=== PATIENT | male | born 1965 | race Caucasian/White ===

== ENCOUNTER 2020-03-04 06:39 | Outpatient (REF) | payer BC, SELFPAY ==
[2020-03-04 11:06] LABS: MANUAL DIFF FLAG NO
[2020-03-04 11:14] LABS: Basophils Absolute Auto 0.1 X10*3/uL (0.0-0.2); Basophils Percent Auto 1.2 % (0-2); Eosinophils Absolute Auto 0.1 X10*3/uL (0.0-0.4); Eosinophils Percent Auto 2.1 % (0-4); Hematocrit 48.2 % (42-52); Hemoglobin 15.9 g/dl (14.0-18.0); Imm Gran Abs Auto 0.02 X10*3/uL (0.00-0.03); Imm Gran Pct Auto 0.4 % (0.0-0.4); Lymphocytes Absolute Auto 1.3 X10*3/uL (1.2-4.9); Lymphocytes Percent Auto 24.8 % (20-40); Mean Corpuscular Hemoglobin 31.1 pg (27.0-33.0); Mean Corpuscular Volume 94.1 fL (80-98); Mean Platelet Volume 10.6 fL (9.4-12.4); Monocytes Absolute Auto 0.5 X10*3/uL (0.1-1.2); Monocytes Percent Auto 9.5 % (2-11); Neutrophils Absolute Auto 3.2 X10*3/uL (2.0-8.3); Platelet Count 215 X10*3/uL (160-400); Red Blood Count 5.12 X10*6/uL (4.60-5.80); Red Cell Distribution Width 12.5 % (11.0-16.0); White Blood Count 5.2 X10*3/uL (4.8-10.8)
[2020-03-04 11:35] LABS: Alanine Aminotransferase 15 U/L (0-40); Albumin Level 4.4 g/dL (3.5-5.0); Alkaline Phosphatase 70 U/L (39-117); Anion Gap 13 (12-20); Aspartate Amino Transferase 19 U/L (5-37); Blood Urea Nitrogen 16 mg/dL (9-16); Calcium 9.2 mg/dL (8.4-10.2); Carbon Dioxide 28 mmol/L (22-29); Chloride 101 mmol/L (96-108); Cholesterol 189 mg/dL; Estimated Glomerular Filt Rate > 60; Glucose Fasting 88 mg/dL (60-99); HDL Cholesterol 69 mg/dL; LDL Cholesterol Calculated 106 mg/dl; Potassium 4.4 mmol/l (3.3-5.1); Sodium 138 mmol/L (135-145); Total Protein 7.3 g/dL (6.5-8.0); Triglycerides 74 mg/dL
[2020-03-04 12:00] LABS: TSH reflex Free T4 0.61 mIU/mL (0.32-4.0)
== END 2020-03-04 06:40 | disposition home or self-care (01) ==
LOC: HO.HMGCLDS 06:39
PROVIDERS: PCP Internal Medicine; Visit Provider Internal Medicine
DX: E78.9 Disorder of lipoprotein metabolism, unspecified (principal)
CPT/HCPCS: 36415; 80053; 80061; 84443; 85025

== ENCOUNTER 2020-08-27 06:43 | Outpatient (REF) | payer BC, SELFPAY ==
[2020-08-27 12:29] LABS: Anion Gap 13 (12-20); Blood Urea Nitrogen 15 mg/dL (9-16); Calcium 9.5 mg/dL (8.4-10.2); Carbon Dioxide 28 mmol/L (22-29); Chloride 104 mmol/L (96-108); Cholesterol 196 mg/dL; Estimated Glomerular Filt Rate > 60; Glucose Fasting 93 mg/dL (60-99); HDL Cholesterol 73 mg/dL; LDL Cholesterol Calculated 103 mg/dl; Potassium 4.9 mmol/L (3.3-5.1); Sodium 140 mmol/L (135-145); Triglycerides 100 mg/dL
[2020-08-27 12:30] LABS: TSH reflex Free T4 0.76 uIU/mL (0.32-4.0)
== END 2020-08-27 06:44 | disposition home or self-care (01) ==
LOC: HO.HMGCLDS 06:43
PROVIDERS: PCP Internal Medicine; Visit Provider Internal Medicine
DX: Z00.01 Encounter for general adult medical examination with abnormal findings (principal); E03.8 Other specified hypothyroidism; I48.0 Paroxysmal atrial fibrillation
CPT/HCPCS: 36415; 80048; 80061; 84443

== ENCOUNTER → 2020-12-12 12:54 | Outpatient (BNVA) | payer BC, SELFPAY | PROVIDERS: PCP Internal Medicine; Referring Provider Internal Medicine; Visit Provider Internal Medicine Cardiovascular Disease | DX: I48.19 Other persistent atrial fibrillation (principal) | CPT/HCPCS: 93005 ==

== ENCOUNTER → 2021-01-08 11:59 | Day surgery (SDC) | payer BC, SELFPAY ==
[2021-01-01 12:30] VITALS: BMI 26.6
[2021-01-02 09:36] VITALS: BMI 26.6
--- NOTE | 2021-01-07 15:30 | HO.ANESPROP2 ---
HPI - Anesthesia Eval Consult details Narrative: 55yo M for Cardioversion Xarelto for afib PMFSH Active Problems Active Problems: All Active Problems (Updated 01/02/21 @ 09:32 by Miranda Caes RN) Persistent atrial fibrillation (Acute) Lipid disorder (Acute) Other specified hypothyroidism (Acute) Past Medical History Medical History (Updated 01/02/21 @ 09:32 by Miranda Case RN) History of thyroid storm Lipid disorder Other specified hypothyroidism Paroxysmal atrial fibrillation Family History Family History Father Cancer of prostate Colon polyps Mother No problems noted. Maternal Grandfather Leukemia Maternal Grandmother No problems noted. Paternal Grandmother No problems noted. Paternal Grandfather No problems noted. Brother No problems noted. Brother No problems noted. Brother No problems noted. Sister No problems noted. Surgical History Surgical History (Updated 01/02/21 @ 09:32 by Miranda Case RN) History of wisdom tooth extraction Hx of colonoscopy Social History Social History (Updated 01/02/21 @ 09:31 by Miranda Case RN) Housing: House Alcohol intake: never Patient Tobacco Use Status: Never used Tobacco Second Hand Smoke Exposure: No Current occupational status: employed Meds Allergies Allergy/AdvReac Type Severity Reaction Status Date / Time No Known Allergies Allergy Mild NOT Verified 01/02/21 09:30 APPLICABLE Home Medications Medication Instructions Recorded Confirmed Last Taken Type latanoprost 0.005 % eye drops drp OPHTHALMIC (EYE) 03/13/20 12/12/20 Unknown History metoprolol succinate 25 mg 25 mg PO BEDTIME 01/02/21 01/02/21 Unknown History tablet,extended release 24 hr (Toprol XL) rivaroxaban 20 mg tablet (Xarelto) 20 mg PO BEDTIME 01/02/21 01/02/21 Unknown History Exam Exam Date and Time: January 07, 2021 1530 Height,Weight and Vital Signs: Height 5 ft 9 in Weight 81.647 kg Narrative Narrative: EKG 11/2020 atrial fibrillation rightward axis with nonspecific ST T wave changes Assessment and Plan Assessment Anesthesia Assessment: Chart Reviewed
--- NOTE | 2021-01-08 12:42 | ECG_ITS ---
Test Reason : SINUS JYOTI Blood Pressure : / mmHG Vent. Rate : 052 BPM Atrial Rate : 052 BPM P-R Int : 192 ms QRS Dur : 098 ms QT Int : 450 ms P-R-T Axes : 043 043 033 degrees QTc Int : 418 ms Sinus bradycardia with Premature atrial complexes Abnormal ECG When compared with ECG of 30-JUN-2008 09:20, Sinus rhythm has replaced Atrial fibrillation Vent. rate has decreased BY 46 BPM Nonspecific T wave abnormality no longer evident in Lateral leads Referred By: William Woody Electronically Signed By:HUMA DUGAN MD
--- NOTE | 2021-01-08 12:43 | PC.NURSE ---
while assessing patient radial pulse felt normal sinus rhythm. put patient on monitor and is in sinus bradycardia. ekg called. asymptomatic. no cp, sob, dizziness
[2021-01-08 12:47] VITALS: BP 142/88; PULSE 51; RESP 16; TEMP 36.7; O2SAT 95
--- NOTE | 2021-01-08 12:56 | PC.NURSE ---
patient cancelled per md copeland to be seen as an outpatient.
== END ==
PROVIDERS: PCP Internal Medicine; Visit Provider Internal Medicine Cardiovascular Disease
DX: I48.91 Unspecified atrial fibrillation (principal); Z53.09 Procedure and treatment not carried out because of other contraindication
CPT/HCPCS: 93005

== ENCOUNTER → 2021-01-20 06:54 | Outpatient (REF) | payer BC, SELFPAY ==
--- NOTE | 2021-01-20 | HM_ITS ---
Total monitoring time 2 days and 23 hours. Underlying rhythm is sinus. Minimum heart rate 40/Min. Maximum 90/Min. Average 60/Min. No atrial fibrillation or flutter. Occasional supraventricular ectopy with a burden of 0.75%. 7 supraventricular episodes with the longest run of 21 beats. Very rare ventricular ectopy with a burden of 0.2%; 2 morphologies; 1 couplet. No patient events. MTDD
--- NOTE | 2021-01-20 07:00 | CA_ITS ---
Transthoracic Echocardiogram Patient (Last, First, Middle): Evan Morris D Gender: Male Date of : 1965 Age: 55 Procedure Date: 01/20/2021 Procedure Type: Transthoracic Echocardiogram Location: OP Height: 175.26 cm Weight: 83.92 kg BSA: 2.00 m2 Heart Rate: bpm BP: 118 / 80 mmHg Burrito Maker: Referring MD: Eliseo Adame MD Symptoms: AFIB Study Quality: Fair ECG Rhythm: Sinus Conclusions: - The left ventricular systolic function is low normal. The calculated ejection fraction is 51% by biplane method. - Suggestion of basal inferior hypokinesis in some views. - No obvious valvular pathology seen on this study. Findings Left Ventricle Normal left ventricular cavity size. There is mildly increased left ventricular wall thickness. The left ventricular systolic function is low normal. The calculated ejection fraction is 51% by biplane method. There is borderline global hypokinesis. E/E prime ratio is <8, consistent with normal filling pressures. Evidence suggests grade I (mild) diastolic dysfunction. Suggestion of basal inferior hypokinesis in some views. Right Ventricle Normal right ventricular cavity size and systolic function. Atria Both atria are normal in size. Aortic Valve There is a normal trileaflet aortic valve. There is no aortic valve stenosis. There is no aortic valve regurgitation. Mitral Valve The mitral valve appears normal. There is trace mitral valve regurgitation. There is no mitral valve stenosis. Pulmonic Valve The pulmonic valve was not well visualized. Tricuspid Valve Normal tricuspid valve structure. There is trace tricuspid valve regurgitation. The pulmonary artery systolic pressure is normal. Great Vessels Top normal ascending aortic size at 3.5 cm. Venous The inferior vena cava is normal in size and collapses greater than 50% with inspiration. Pericardium/Pleural There is no evidence of pericardial effusion. Prior Study Comparison Changes noted compared to prior study dated: 06/27/2019. Recommendations, Care & Conclusions No obvious valvular pathology seen on this study. Measurements 2D Linear Measurements IVSd: 1.22 0.6-0.9/0.6-1.0 cm LVIDd: 5.83 3.9-5.3/4.2-5.9 cm LVIDd Index: 2.92 2.4-3.2/2.2-3.1 cm/m2 LVIDs: 4.10 2.0-3.6 cm LVPWd: 1.23 0.7-1.1 cm Ao Root: 3.30 2.1-3.5 cm LA Diam: 4.60 2.7-3.8/3.0-4.0 cm LAIDs Index: 2.30 1.5-2.3 cm/m2 LV Mass: 384.29 67-162/88-224 g LV Mass Index: 192.14 43-95/49-115 g/m2 LVOT Diam: 2.40 3.0+(-)1.3 cm 2D Systolic Function EF 4C: 50.50 >55% EF 2C: 55.30 >55% EF BiP: 51.20 >55% Mitral Valve MV Pk E: 0.50 MV PK A: 0.33 MV Decel Time: 195.00 E/A: 1.50 E'Lateral: 7.72 E'Medial: 4.03 E/E' Med: 12.30 E/E' Lat: 6.40 PHT: 57.00 MVA PHT: 3.86 Decel Branch: 2.54 Aortic Valve AoV Pk Kristopher: 0.82 AoV Mn Kristopher: 0.52 AoV VTI: 0.17 AoV Pk Grad: 3.00 Aov Mn Grad: 1.00 SONNY Cont.VTI: 4.05 LVOT LVOT Pk Kristopher: 0.72 LVOT Mn Kristopher: 0.45 LVOT VTI: 0.15 LVOT Pk Grad: 2.00 LVOT Mn Grad: 1.00 LVOT Diam: 2.40 LVOT Area: 4.52 Diastolic Function MV Pk E: 0.50 MV Pk A: 0.33 E/A: 1.50 E'Medial: 4.03 E/E' Med: 12.30 E' Laterial: 7.72 E/E' Lat: 6.40 Right Ventricle TAPSE (mm): 20.00 TVS' Kristopher: 8.00 Tricuspid Valve TR Pk Kristopher: 2.07 TR Pk Grad: 17.00 Great Vessels Aorta Ao Root-2D: 3.30 2.0-3.7 cm Ao Asc: 3.50 2.1-3.4 cm Pulmonary Valve PV Pk Kristopher: 0.67 Peak PV Grad: 2.00 Updated in Other Vendor System with Status of Final Sigifredo Kang MD electronically signed on 01/20/2021 12:02:47 PM with status of Final
== END ==
LOC: HO.CARD 06:54
PROVIDERS: PCP Internal Medicine; Visit Provider Internal Medicine Cardiovascular Disease
DX: I48.19 Other persistent atrial fibrillation (principal)
CPT/HCPCS: 93242; 93306

== ENCOUNTER → 2021-02-03 14:55 | Outpatient (BNVA) | payer BC, SELFPAY | PROVIDERS: PCP Internal Medicine; Referring Provider Internal Medicine; Visit Provider Internal Medicine Cardiovascular Disease | DX: I48.0 Paroxysmal atrial fibrillation (principal); E78.9 Disorder of lipoprotein metabolism, unspecified | CPT/HCPCS: 93005 ==

== ENCOUNTER 2021-03-03 08:18 | Outpatient (REF) | payer BC, SELFPAY ==
[2021-03-03 12:23] LABS: Alanine Aminotransferase 18 U/L (0-40); Albumin Level 4.3 g/dL (3.5-5.0); Alkaline Phosphatase 64 U/L (39-117); Anion Gap 13 (12-20); Aspartate Amino Transferase 20 U/L (5-37); Bilirubin Total 0.5 mg/dL (0.0-1.0); Blood Urea Nitrogen 13 mg/dL (9-16); Calcium 9.2 mg/dL (8.4-10.2); Carbon Dioxide 25 mmol/L (22-29); Chloride 107 mmol/L (96-108); Cholesterol 172 mg/dL; Estimated Glomerular Filt Rate > 60; Glucose Fasting 93 mg/dL (60-99); HDL Cholesterol 67 mg/dL; LDL Cholesterol Calculated 95 mg/dl; Potassium 4.6 mmol/L (3.3-5.1); Sodium 140 mmol/L (135-145); Total Protein 7.1 g/dL (6.5-8.0); Triglycerides 51 mg/dL
[2021-03-03 12:28] LABS: TSH reflex Free T4 1.17 uIU/mL (0.32-4.0)
== END 2021-03-03 08:19 | disposition home or self-care (01) ==
LOC: HO.HMGCLDS 08:18
PROVIDERS: PCP Internal Medicine; Visit Provider Internal Medicine
DX: E03.8 Other specified hypothyroidism (principal); E78.9 Disorder of lipoprotein metabolism, unspecified
CPT/HCPCS: 36415; 80053; 80061; 84443

== ENCOUNTER → 2021-07-01 07:10 | Outpatient (BNVA) | payer BC, SELFPAY | PROVIDERS: PCP Internal Medicine; Referring Provider Internal Medicine; Visit Provider Nurse Practitioner | DX: Z13.89 Encounter for screening for other disorder (principal) ==

== ENCOUNTER → 2021-08-11 14:34 | Outpatient (BNVA) | payer BC, SELFPAY | PROVIDERS: PCP Internal Medicine; Referring Provider Internal Medicine; Visit Provider Internal Medicine Cardiovascular Disease | DX: I48.0 Paroxysmal atrial fibrillation (principal); E78.9 Disorder of lipoprotein metabolism, unspecified | CPT/HCPCS: 93005 ==

== ENCOUNTER 2021-08-29 06:05 | Outpatient (REF) | payer BC, SELFPAY ==
[2021-08-29 11:52] LABS: Alanine Aminotransferase 15 U/L (0-40); Albumin Level 4.3 g/dL (3.5-5.0); Alkaline Phosphatase 72 U/L (39-117); Anion Gap 11 (12-20); Aspartate Amino Transferase 18 U/L (5-37); Bilirubin Total 1.1 mg/dL (0.0-1.0); Blood Urea Nitrogen 16 mg/dL (9-16); Calcium 9.5 mg/dL (8.4-10.2); Carbon Dioxide 25 mmol/L (22-29); Chloride 105 mmol/L (96-108); Cholesterol 178 mg/dL; Estimated Glomerular Filt Rate > 60; Glucose Fasting 93 mg/dL (60-99); HDL Cholesterol 58 mg/dL; LDL Cholesterol Calculated 104 mg/dl; Sodium 137 mmol/L (135-145); Total Protein 7.3 g/dL (6.5-8.0); Triglycerides 82 mg/dL
[2021-08-29 12:18] LABS: TSH reflex Free T4 0.95 uIU/mL (0.32-4.0)
== END 2021-08-29 06:06 | disposition home or self-care (01) ==
LOC: HO.HMGCLDS 06:05
PROVIDERS: PCP Internal Medicine; Visit Provider Internal Medicine
DX: E78.9 Disorder of lipoprotein metabolism, unspecified (principal); E03.8 Other specified hypothyroidism; I48.0 Paroxysmal atrial fibrillation
CPT/HCPCS: 36415; 80053; 80061; 84443

== ENCOUNTER 2022-03-09 06:01 | Outpatient (REF) | payer BC, SELFPAY ==
[2022-03-09 12:24] LABS: Alanine Aminotransferase 16 U/L (0-40); Albumin Level 4.4 g/dL (3.5-5.0); Alkaline Phosphatase 73 U/L (39-117); Anion Gap 10 (12-20); Aspartate Amino Transferase 16 U/L (5-37); Bilirubin Total 0.7 mg/dL (0.0-1.0); Blood Urea Nitrogen 15 mg/dL (9-16); Calcium 9.3 mg/dL (8.4-10.2); Carbon Dioxide 27 mmol/L (22-29); Chloride 104 mmol/L (96-108); Cholesterol 191 mg/dL; Estimated Glomerular Filt Rate > 60; Glucose Fasting 103 mg/dL (60-99); HDL Cholesterol 61 mg/dL; LDL Cholesterol Calculated 114 mg/dl; Potassium 4.1 mmol/L (3.3-5.1); Prostate Specific Antigen 1.53 ng/mL (<0.05-4.0); Sodium 137 mmol/L (135-145); TSH reflex Free T4 1.14 uIU/mL (0.32-4.0); Total Protein 7.1 g/dL (6.5-8.0); Triglycerides 81 mg/dL
== END 2022-03-09 06:02 | disposition home or self-care (01) ==
LOC: HO.HMGCLDS 06:01
PROVIDERS: PCP Internal Medicine; Visit Provider Internal Medicine
DX: Z12.5 Encounter for screening for malignant neoplasm of prostate (principal); E03.8 Other specified hypothyroidism; E78.9 Disorder of lipoprotein metabolism, unspecified; I48.0 Paroxysmal atrial fibrillation
CPT/HCPCS: 36415; 80053; 80061; 84153; 84443

== ENCOUNTER 2022-06-05 11:02 | Day surgery (SDC) | payer BC, SELFPAY ==
[2022-06-02 15:33] VITALS: BMI 27.7
--- NOTE | 2022-06-04 13:19 | HO.ANESPROP2 ---
Documented by User: Tasneem Noel NP 06/04/22 13:21 HPI - Anesthesia Eval Consult details Narrative: 57yo M for Colonoscopy PAF - no anticoag, followed yearly by Dr Deep ROSE Active Problems Active Problems: All Active Problems (Updated 03/17/22 @ 08:51 by Mateo Mcginnis MD) Encounter for general adult medical examination with abnormal findings (Acute) Colon cancer screening (Acute) Acquired hypothyroidism (Acute) Screening for prostate cancer (Acute) Impaired fasting blood sugar (Acute) Overweight (BMI 25.0-29.9) (Acute) Paroxysmal atrial fibrillation (Acute) Lipid disorder (Acute) Other specified hypothyroidism (Acute) Past Medical History Medical History (Updated 03/17/22 @ 08:51 by Mateo Mcginnis MD) History of thyroid storm Lipid disorder Other specified hypothyroidism Paroxysmal atrial fibrillation Persistent atrial fibrillation Family History Family History Father Cancer of prostate Colon polyps Mother No problems noted. Maternal Grandfather Leukemia Maternal Grandmother No problems noted. Paternal Grandmother No problems noted. Paternal Grandfather No problems noted. Brother No problems noted. Brother No problems noted. Brother No problems noted. Sister No problems noted. Surgical History Surgical History (Updated 06/02/22 @ 15:31 by Sara Rodriguez RN) History of wisdom tooth extraction Hx of colonoscopy Social History Social History Housing: House Alcohol intake: never Patient Tobacco Use Status: Never used Tobacco e-Cigarette/Vaping Use: Never Used Second Hand Smoke Exposure: No Are you DNR?: No Advance Directives: No Advance Directives Information Provided: Yes Nutrition Risks: No Nutritional Risk Current occupational status: employed Cognitive needs: No Hearing needs: No Vision needs: Yes Meds Allergies Allergy/AdvReac Type Severity Reaction Status Date / Time No Known Allergies Allergy Mild NOT Verified 03/17/22 08:33 APPLICABLE Home Medications Medication Instructions Recorded Confirmed Last Taken Type latanoprost 0.005 % eye drops 1 drp ophthalmic (eye) BEDTIME 03/13/20 06/02/22 Unknown History Exam Exam Date and Time: June 04, 2022 1319 Height,Weight and Vital Signs: Height 5 ft 9 in Weight 85.275 kg Pertinent Lab Results Pertinent Lab Results: Laboratory Tests 03/04/20 03/09/22 06:49 06:07 WBC 5.2 Hgb 15.9 Hct 48.2 Plt Count 215 Sodium 137 Potassium 4.1 Chloride 104 Carbon Dioxide 27 BUN 15 Creatinine 1.12 Narrative Narrative: EKG 07/2021 normal sinus rhythm with poor R-wave progression most likely due to lead placement. ECHO 2020 Conclusions: - The left ventricular systolic function is low normal.? The ? ? calculated ejection fraction is 51% by biplane method. ? - Suggestion of basal inferior hypokinesis in some views.? - No obvious valvular pathology seen on this study.? Assessment and Plan Assessment Anesthesia Assessment: Chart Reviewed Documented by User: Gwendolyn Vasques MD 06/05/22 12:54 [facility] Past Medical History Medical History (Updated 03/17/22 @ 08:51 by Mateo Mcginnis MD) History of thyroid storm Lipid disorder Other specified hypothyroidism Paroxysmal atrial fibrillation Persistent atrial fibrillation Family History Family History Father Cancer of prostate Colon polyps Mother No problems noted. Maternal Grandfather Leukemia Maternal Grandmother No problems noted. Paternal Grandmother No problems noted. Paternal Grandfather No problems noted. Brother No problems noted. Brother No problems noted. Brother No problems noted. Sister No problems noted. Family history of problems with anesthesia: No Surgical History Surgical History (Updated 06/02/22 @ 15:31 by Sara Rodriguez RN) History of wisdom tooth extraction Hx of colonoscopy History of Problems with Anesthesia: No Social History Social History Housing: House Alcohol intake: never Patient Tobacco Use Status: Never used Tobacco e-Cigarette/Vaping Use: Never Used Second Hand Smoke Exposure: No Are you DNR?: No Advance Directives: No Advance Directives Information Provided: Yes Nutrition Risks: No Nutritional Risk Current occupational status: employed Cognitive needs: No Hearing needs: No Vision needs: Yes Meds Allergies Allergy/AdvReac Type Severity Reaction Status Date / Time No Known Allergies Allergy Mild NOT Verified 03/17/22 08:33 APPLICABLE Home Medications Medication Instructions Recorded Confirmed Last Taken Type latanoprost 0.005 % eye drops 1 drp ophthalmic (eye) BEDTIME 03/13/20 06/02/22 Unknown History Exam Airway Mallampati Class: II (Missing a crown in on tooth) TM Dist: >3cm Neck ROM: Full Heart: rrr Lungs: cta Assessment and Plan Assessment Anesthesia Assessment: Anesthesia Plan Discussed Final Anesthetic Review Family History of Problems with Anesthesia: No History of Problems with Anesthesia: No NPO: Yes ASA Class: II Final Preanesthetic Review: No Changes in Pt Med Stat, Meds/Allgs Chart Reviewed and Consent Obtained/Reviewed Patient Risk: Intermediate Procedure Risk: Intermediate Anesthetic Plan Anesthetic Plan: MAC: Disposition: Standard PACU
[2022-06-05] MEDS: Lactated Ringers 1,000 ML 100 ML IVCONT (11:48)
[2022-06-05 12:01] VITALS: BP 132/75; PULSE 62; RESP 18; TEMP 36.4; O2SAT 97
--- NOTE | 2022-06-05 12:17 | MHC.SHP ---
Pre-Procedural Eval Section A Date of Service: 06/05/22 The patient is an INPATIENT: No The History & Physical has been completed within 30 days and I have reviewed it.: No Section B Chief Complaint: screening, hx of hyperplastic polyp Details of Present Illness: Colon cancer screening, history of colon polyps Relevant Family History (Specify if Yes): Yes Relevant Social History: None Present Medications: see Short Stay Collaborative assessment Medical History: Significant History (History of thyroid storm Lipid disorder Other specified hypothyroidism Paroxysmal atrial fibrillation Persistent atrial fibrillation) History of Previous Operations: Relevant previous surgery/procedure and date(s) (History of wisdom tooth extraction Hx of colonoscopy) Allergies: Allergies Allergy/AdvReac Type Severity Reaction Status Date / Time No Known Allergies Allergy Mild NOT Verified 03/17/22 08:33 APPLICABLE Review of Systems Sugical H&P ROS: Negative: Constitution, Cardiovascular, Respiratory and Gastrointestinal Exam Surgical H&P Exam: Normal: Heart, Normal: Lungs, Normal: Extremities and Normal: Abdomen Plan Diagnosis/Plan: Unchanged I have reviewed the history and physical and performed a pertinent physical examination on my patient. No changes have occurred unless specified. Time Spent With Patient Time: Total time managing care of this patient today ____ minutes.
--- NOTE | 2022-06-05 13:11 | PM.OP ---
Brief Operative Note Date of Service: 06/05/22 Pre-op diagnosis: Colon cancer screening, history of hyperplastic polyp Post-op diagnosis: other (COLON POLYPS, DIVERTICULOSIS, HEMORRHOIDS) Procedure: COLONOSCOPY TILL CECUM WITH BIOPSIES Surgeon: Jeremy Jaramillo MD Anesthesia: MAC Was an Juvenile Justice Specialist used for this Procedure?: Yes Juvenile Justice Specialist: Amadna Berg Estimated blood loss (mL): 1 Pathology: other (A. transverse colon polyps (2)) Condition: stable Disposition: PACU
--- NOTE | 2022-06-05 13:11 | W.PM.OPN ---
Operative Note Operative Note Date of Service: 06/05/22 Narrative: COLONOSCOPY TILL CECUM WITH BIOPSIES Indication:? Colon cancer screening Endoscopist:? Jeremy Jaramillo MD Anesthesia Provider:?Dr Monahan Anesthesia type:?MAC Consent: Indications for the procedure and potential complications of bleeding, perforation, reaction to medications and missed diagnosis were discussed with the patient and informed consent was obtained. Instrument: Olympus PCF H 190 L variable stiffness pediatric colonoscope Monitoring: Vital signs and clinical assessment, intermittent blood pressure monitoring, continuous EKG monitoring, Pulse oximetry and Carbon Dioxide monitoring were done throughout the procedure. Please see anesthesia flowsheet. Colon withdrawl time was 12 minutes. Procedure: The patient was placed in the left lateral decubitis position and pre-procedure medications were administered. After a digital rectal examination of the ano-rectum, the video colonoscope was inserted into the rectum and advanced through the colon to the cecum. The colonoscope was slowly withdrawn in a retrograde panoramic fashion and the colon mucosa was carefully examined including a retroflexed view of the rectum. Findings and interventions are described below. Procedure Difficulty: Without difficulty Findings: Terminal Ileum: Not evaluated Cecum: Normal Ascending Colon: Normal Transverse Colon: Two 3-6 mm diminutive appearing polyps removed with a cold biopsy Descending Colon: Moderate diverticulosis Sigmoid Colon: Moderate diverticulosis Rectum: Normal Ano-rectum: Moderate internal hemorrhoids Colon preparation: Excellent Impression and Post Procedure Diagnosis: Colonoscopy Findings: Two small polyps removed Moderate diverticulosis seen in the left colon Moderate hemorrhoids on retroflexed exam. Plan: Await pathology results Patient has an appointment on 06/19/22 in the [facility] with Tessa Porter NP. Repeat Colonoscopy interval based on path results - in 5 years if polyps are adenomatous and 10 years if polyps are hyperplastic. Above findings were reviewed with the patient and colon polyps and diverticulosis handouts were given in the discharge area
[2022-06-05 13:42] VITALS: BP 106/58; PULSE 56; RESP 20; TEMP 36.8; O2SAT 99
[2022-06-05 13:57] VITALS: BP 121/79; PULSE 60; RESP 20; TEMP 36.8; O2SAT 98
== END 2022-06-05 14:28 | disposition home or self-care (01) ==
PROVIDERS: PCP Internal Medicine; Visit Provider Internal Medicine Gastroenterology
PROC: 0DJD8ZZ Inspection of Lower Intestinal Tract, Via Natural or Artificial Opening Endoscopic (ICD-10-PCS; CPT 45378; principal; 2022-06-05 12:30)
DX: Z12.11 Encounter for screening for malignant neoplasm of colon (principal); Z86.010 Personal history of colon polyps; K63.5 Polyp of colon; K57.30 Diverticulosis of large intestine without perforation or abscess without bleeding; K64.8 Other hemorrhoids; E75.6 Lipid storage disorder, unspecified; I48.0 Paroxysmal atrial fibrillation; I48.19 Other persistent atrial fibrillation; E03.9 Hypothyroidism, unspecified; Z86.39 Personal history of other endocrine, nutritional and metabolic disease; Z79.899 Other long term (current) drug therapy
CPT/HCPCS: 45380; 88305

== ENCOUNTER → 2022-06-17 15:39 | Outpatient (REF) | payer BC, SELFPAY ==
--- NOTE | 2022-06-17 15:43 | CA_ITS ---
Transthoracic Echocardiogram Amended Patient (Last, First, Middle): Evan Morris D Gender: Male Date of : 1965 Age: 57 Procedure Date: 06/17/2022 Procedure Type: Transthoracic Echocardiogram Location: OP Height: 175.26 cm Weight: 86.18 kg BSA: 2.02 m2 Heart Rate: bpm BP: 125 / 60 mmHg Textile Colorist Dyer: Referring MD: Eliseo Adame MD Information Technology Program Manager: Eliseo Adame MD Symptoms: I48.0 - Paroxysmal atrial fibrillation Study Quality: Good ECG Rhythm: Sinus Conclusions: - 1. Low normal LV systolic function with LVEF of 50-55% 2. Normal cardiac valvular Doppler 3. Normal RV systolic pressure Findings Left Ventricle Normal left ventricular cavity size. There is normal left ventricular wall thickness. The left ventricular systolic function is low normal. The visually estimated ejection fraction is between 50-55%. Diastolic function is normal for age. Right Ventricle Mildly increased right ventricular cavity size. There is normal right ventricular systolic function. Atria The left atrium is mildly dilated. There is no evidence of interatrial shunt. The right atrium is normal in size. Aortic Valve Normal aortic valve structure and function. There is no aortic valve stenosis. There is no aortic valve regurgitation. Mitral Valve Normal mitral valve structure and function. There is trace mitral valve regurgitation. There is no mitral valve stenosis. Pulmonic Valve The pulmonic valve was not well visualized. Tricuspid Valve Likely normal tricuspid valve structure and function. There is trace tricuspid valve regurgitation. The right ventricular systolic pressure is normal. The right ventricular systolic pressure is 20 mmHg. Normal right atrial pressure. There is no evidence of pulmonary hypertension. Great Vessels All visible segments of the aorta are normal in size. The pulmonary artery was not well visualized. Venous The inferior vena cava is normal in size and collapses greater than 50% with inspiration. Pericardium/Pleural There is no evidence of pericardial effusion. Prior Study Comparison No significant change compared to prior study dated: 01/20/2021. Measurements 2D Linear Measurements IVSd: 1.12 0.6-0.9/0.6-1.0 cm LVIDd: 5.79 3.9-5.3/4.2-5.9 cm LVIDd Index: 2.87 2.4-3.2/2.2-3.1 cm/m2 LVIDs: 3.92 2.0-3.6 cm LVPWd: 1.01 0.7-1.1 cm Ao Root: 3.20 2.1-3.5 cm LA Diam: 4.40 2.7-3.8/3.0-4.0 cm LAIDs Index: 2.18 1.5-2.3 cm/m2 LV Mass: 314.80 67-162/88-224 g LV Mass Index: 155.84 43-95/49-115 g/m2 LVOT Diam: 2.50 3.0+(-)1.3 cm 2D Volumes LA Vol: 39.30 2D Systolic Function EF 4C: 54.90 >55% EF 2C: 52.30 >55% Mitral Valve MV Pk E: 0.51 MV PK A: 0.37 MV Decel Time: 243.00 E/A: 1.40 E'Lateral: 7.83 E'Medial: 3.70 E/E' Med: 13.90 E/E' Lat: 6.60 PHT: 71.00 MVA PHT: 3.10 Decel [place]: 2.11 Aortic Valve AoV Pk Kristopher: 1.13 AoV Mn Kristopher: 0.70 AoV VTI: 0.25 AoV Pk Grad: 5.00 Aov Mn Grad: 2.00 SONNY Cont.VTI: 2.53 LVOT LVOT Pk Kristopher: 0.59 LVOT Mn Kristopher: 0.33 LVOT VTI: 0.13 LVOT Pk Grad: 1.00 LVOT Mn Grad: 1.00 LVOT Diam: 2.50 LVOT Area: 4.91 Diastolic Function MV Pk E: 0.51 MV Pk A: 0.37 E/A: 1.40 E'Medial: 3.70 E/E' Med: 13.90 E' Laterial: 7.83 E/E' Lat: 6.60 Right Ventricle TAPSE (mm): 18.00 TVS' Kristopher: 10.00 Tricuspid Valve TR Pk Kristopher: 2.07 TR Pk Grad: 17.00 RA Press: 3.00 RVSP: 20.00 Great Vessels Aorta Ao Root-2D: 3.20 2.0-3.7 cm Ao Asc: 3.40 2.1-3.4 cm Pulmonary Valve PV Pk Kristopher: 0.73 Peak PV Grad: 2.00 Updated in Other Vendor System with Status of Final Eliseo Deep MD electronically signed on 07/07/2022 4:19:53 PM with status of Final
== END ==
LOC: HO.CARD 15:39
PROVIDERS: PCP Internal Medicine; Visit Provider Internal Medicine Cardiovascular Disease
DX: I48.0 Paroxysmal atrial fibrillation (principal)
CPT/HCPCS: 93306

== ENCOUNTER → 2022-06-19 07:39 | Outpatient (BNVA) | payer BC, SELFPAY | PROVIDERS: PCP Internal Medicine; Referring Provider Internal Medicine; Visit Provider Nurse Practitioner | DX: Z13.89 Encounter for screening for other disorder (principal) ==

== ENCOUNTER → 2022-08-17 13:37 | Outpatient (BNVA) | payer BC, SELFPAY | PROVIDERS: PCP Internal Medicine; Referring Provider Internal Medicine; Visit Provider Internal Medicine Cardiovascular Disease | DX: I48.0 Paroxysmal atrial fibrillation (principal); E78.9 Disorder of lipoprotein metabolism, unspecified | CPT/HCPCS: 93005 ==

== ENCOUNTER 2022-09-05 06:32 | Outpatient (REF) | payer BC, SELFPAY ==
[2022-09-05 11:15] LABS: MANUAL DIFF FLAG NO
[2022-09-05 11:16] LABS: Basophils Absolute Auto 0.1 X10*3/uL (0.0-0.2); Basophils Percent Auto 1.3 % (0-2); Eosinophils Absolute Auto 0.1 X10*3/uL (0.0-0.4); Eosinophils Percent Auto 2.4 % (0-4); Hematocrit 47.8 % (42.0-52.0); Hemoglobin 15.9 g/dl (14.0-18.0); Lymphocytes Absolute Auto 1.4 X10*3/uL (1.2-4.9); Lymphocytes Percent Auto 31.1 % (20-40); Mean Corpuscular HGB Conc 33.3 g/dl (31.0-36.0); Mean Corpuscular Hemoglobin 30.6 pg (27.0-33.0); Mean Corpuscular Volume 92.1 fL (80.0-98.0); Mean Platelet Volume 10.7 fL (9.4-12.4); Monocytes Absolute Auto 0.5 X10*3/uL (0.1-1.2); Monocytes Percent Auto 10.6 % (2-11); Neutrophils Absolute Auto 2.5 x10*3/uL (2.0-8.3); Neutrophils Percent Auto 54.6 % (45-73); Platelet Count 187 X10*3/uL (160-400); Red Blood Count 5.19 X10*6/uL (4.60-5.80); Red Cell Distribution Width 12.5 % (11.0-16.0); White Blood Count 4.5 X10*3/uL (4.8-10.8)
[2022-09-05 11:45] LABS: Alanine Aminotransferase 17 U/L (0-40); Albumin Level 4.4 g/dL (3.5-5.0); Alkaline Phosphatase 68 U/L (39-117); Anion Gap 11 (12-20); Aspartate Amino Transferase 24 U/L (5-37); Bilirubin Total 1.5 mg/dL (0.0-1.0); Blood Urea Nitrogen 19 mg/dL (9-16); Calcium 9.3 mg/dL (8.4-10.2); Carbon Dioxide 24 mmol/L (22-29); Chloride 107 mmol/L (96-108); Cholesterol 171 mg/dL; Estimated Glomerular Filt Rate > 60; Glucose Fasting 92 mg/dL (60-99); HDL Cholesterol 62 mg/dL; LDL Cholesterol Calculated 97 mg/dl; Potassium 4.3 mmol/L (3.3-5.1); Sodium 138 mmol/L (135-145); Total Protein 7.1 g/dL (6.5-8.0); Triglycerides 62 mg/dL
[2022-09-05 11:51] LABS: TSH reflex Free T4 0.98 uIU/mL (0.32-4.0)
== END 2022-09-05 06:33 | disposition home or self-care (01) ==
LOC: HO.HMGCLDS 06:32
PROVIDERS: PCP Internal Medicine; Visit Provider Internal Medicine
DX: E03.8 Other specified hypothyroidism (principal); E78.9 Disorder of lipoprotein metabolism, unspecified
CPT/HCPCS: 36415; 80053; 80061; 84443; 85025

== ENCOUNTER 2023-03-06 06:39 | Outpatient (REF) | payer BC, SELFPAY ==
[2023-03-06 11:28] LABS: Alanine Aminotransferase 22 U/L (0-40); Albumin Level 4.6 g/dL (3.5-5.0); Alkaline Phosphatase 92 U/L (39-117); Anion Gap 14 (12-20); Aspartate Amino Transferase 23 U/L (5-37); Bilirubin Total 1.1 mg/dL (0.0-1.0); Blood Urea Nitrogen 14 mg/dL (9-16); Calcium 9.5 mg/dL (8.4-10.2); Carbon Dioxide 23 mmol/L (22-29); Chloride 103 mmol/L (96-108); Cholesterol 192 mg/dL (<200); Estimated Glomerular Filt Rate > 60; Glucose Fasting 95 mg/dL (60-99); HDL Cholesterol 65 mg/dL (>40); LDL Cholesterol Calculated 112 mg/dL (<100); Potassium 3.9 mmol/L (3.3-5.1); Sodium 136 mmol/L (135-145); Total Protein 7.9 g/dL (6.5-8.0); Triglycerides 77 mg/dL (<150)
[2023-03-06 11:36] LABS: TSH reflex Free T4 1.21 uIU/mL (0.32-4.0)
[2023-03-09 06:34] LABS: LDL Cholesterol Direct 111 mg/dL (<100)
== END 2023-03-06 06:40 | disposition home or self-care (01) ==
LOC: HO.HMGCLDS 06:39
PROVIDERS: PCP Internal Medicine; Visit Provider Internal Medicine
DX: Z00.01 Encounter for general adult medical examination with abnormal findings (principal); E03.9 Hypothyroidism, unspecified; R73.01 Impaired fasting glucose; E78.9 Disorder of lipoprotein metabolism, unspecified; I48.0 Paroxysmal atrial fibrillation
CPT/HCPCS: 36415; 80053; 80061; 83721; 84443

== ENCOUNTER 2023-03-17 15:26 | Outpatient (AMB) | payer BC, SELFPAY ==
[2023-03-17 15:35] VITALS: BP 140/82; PULSE 71; O2SAT 99; BMI 27.5
--- NOTE | 2023-03-17 15:35 | A.OFFPC_ITS ---
Vital Signs 03/17/23 15:35 Height 5 ft 9 in Weight 186 lb 6 oz BMI 27.5 BP 140/82 H Blood Pressure Location Rt brachial Position Sitting Pulse 71 Pulse Source Pulse Oximeter Pulse Oximetry (%) 99 Oxygen Delivery Method Room Air Intake Visit Reasons: 6 month follow up Allergies No Known Allergies Allergy (Mild, Verified 03/17/23 15:37) NOT APPLICABLE Medication List - Last Reconciled 03/17/23 by Mateo Mcginnis MD atorvastatin 80 mg PO DAILY latanoprost 0.005% 1 drp ophthalmic (eye) BEDTIME Synthroid (levothyroxine) 112 mcg PO DAILY 90 days NS Tobacco use date assessed: 03/17/23 Dental Screening Dental Screen Date: 03/17/23 Did you have a dental visit in the last 12 months?: Yes Did you have a dental problem in the last 6 months where you did not have access to dental care?: No Was dental information given to patient?: Patient has dentist HPI 6 month follow up HPI Details Patient is a 57-year-old male came in today for his regular 6 month follow-up appointment Paroxysmally atrial fibrillation, managed by Dr. Adame cardiology, Patient is in AFib today, I have told him to start taking aspirin at least that he has not been taking Hypothyroidism: Patient is on Synthroid 112 mcg his TSH is within normal range. Lipid disorder: Continue simvastatin 80 mg lipids are controlled. Labs done recently reviewed with the patient. His LDL has worsened a little bit from 97-112 Impaired fasting sugar , diet-controlled Medication refills sent follow-up 6 months [facility] Medical History History of thyroid storm Persistent atrial fibrillation Lipid disorder Paroxysmal atrial fibrillation Other specified hypothyroidism Surgical History Hx of colonoscopy History of wisdom tooth extraction Family History Father Cancer of prostate Colon polyps Mother No problems noted. Maternal Grandfather Leukemia Maternal Grandmother No problems noted. Paternal Grandmother No problems noted. Paternal Grandfather No problems noted. Brother No problems noted. Brother No problems noted. Brother No problems noted. Sister No problems noted. Social History Housing: House Alcohol intake: never Patient Tobacco Use Status: Never used Tobacco e-Cigarette/Vaping Use: Never Used Second Hand Smoke Exposure: No Current occupational status: employed Cognitive needs: No Hearing needs: No Vision needs: Yes Questionnaire PHQ-9 Over the last 2 weeks, how often have you been bothered by any of the following problems? 1. Little interest or pleasure in doing things: not at all 2. Feeling down, depressed, or hopeless: not at all 3. Trouble falling or staying asleep, or sleeping too much: not at all 4. Feeling tired or having little energy: not at all 5. Poor appetite or overeating: not at all 6. Feeling bad about yourself - or that you are a failure or have let yourself or your family down: not at all 7. Trouble concentrating on things, such as reading the newspaper or watching television: not at all 8. Moving or speaking so slowly that other people could have noticed. Or the opposite - being so fidgety or restless that you have been moving around a lot more than usual: not at all 9. Thoughts that you would be better off or of hurting yourself in some way: not at all Total score: 0 Depression Screening Interpretation: Negative Depression Screening Done: Yes 11913 - PHQ-9 Billing: Yes Source: Developed by Drs. Desmond Meraz, Hyun Morales, Kit Hyde and colleagues, with an educational beatrice from [employer]. Thrive Questionnaire Date Thrive assessed: 03/17/23 I am a: Patient What is your living situation today?: I have a steady place to live Within the past 12 months, did the food you bought not last and you didn't have the money to get more?: Never true Within the past 12 months, did you worry whether your food would run out before you got money to buy more?: Never true Do you have trouble paying for medicines?: No Do you have trouble getting transportation to medical appointments?: No Do you have trouble paying your heating and electricity bill?: No Do you have trouble taking care of your child, family member or friend?: No Do you have trouble with day-to-day activities such as bathing, preparing meals, shopping, managing finances, etc.?: No Are you currently unemployed and looking for a job?: No Are you interested in more education?: No Please select the resources that you would like help with: None Currently or been in a relationship where the following occur: no concerns reported DOMONIQUE-7 AMB Questionnaire DOMONIQUE-7 Date DOMONIQUE - 7 assessed: 03/17/23 Feeling nervous, anxious, or on edge: 0 = Not at all Not being able to stop or control worryin = Not at all Worrying too much about different things: 0 = Not at all Trouble relaxin = Not at all Being so restless that it is hard to sit still: 0 = Not at all Becoming easily annoyed or irritable: 0 = Not at all Feeling afraid as if something awful might happen: 0 = Not at all Total DOMONIQUE-7 score (0-4 normal; 5-9 mild; 10-14 moderate; 15-21 severe): 0 Source: Developed by Drs. Desmond Meraz, Hyun Morales, Kit Hyde and colleagues, with an educational beatrice from [employer]. DOMONIQUE-7 Assessment Billing DOMONIQUE-7 Assessment Tool: DOMONIQUE-7 Assessment 26205 Review of Systems Const Denies chills and Denies fever(s) ENT Denies epistaxis and Denies nasal discharge Card Denies chest pain Resp Denies chest congestion, Denies cough and Denies hemoptysis GI Denies diarrhea and Denies nausea Skin/Breast Denies rash Neuro Reports no additional complaints Psych Reports no additional complaints Endo Reports no additional complaints Physical exam (Primary Care) Vital Signs: Last Vital Signs Pulse 71 03/17/23 15:35 BP 140/82 H 03/17/23 15:35 Pulse Ox 99 03/17/23 15:35 Oxygen Delivery Method Room Air 03/17/23 15:35 BMI result Body Mass Index 27.5 Tobacco/Smoking Status: Tobacco use Status Tobacco use date assessed 03/17/23 03/17/23 15:38 Patient Tobacco Use Status Never used Tobacco 03/17/23 15:38 e-Cigarette/Vaping Use Never Used 03/17/23 15:38 PHQ-9: PHQ-9 Score PHQ-9: Total score 0 03/17/23 15:39 Depression Screening Interpretation: Negative Thrive Assessment: Date of Thrive Assessment Date Thrive assessed 03/17/23 03/17/23 15:39 Currently or been in a relationship where the following occur: no concerns reported Const General: cooperative, comfortable and no acute distress Orientation/consciousness: patient oriented x3 HENSC Head: Yes normocephalic Eyes General: appearance normal, both eyes and all related structures Neck Neck: Yes supple Resp Effort & Inspection: normal respiratory effort, no cough and no stridor Cardio Other: Irregularly irregular Heart sounds: S1 normal heart sound present and S2 normal heart sound present Skin General skin exam: turgor normal Neuro General: patient oriented x3, tone normal and moves all extremities Extrem Right lower extremity: no edema Left lower extremity: no edema Assessment and Plan Assessment & Plan (1) Acquired hypothyroidism: Code(s): E03.9 - Hypothyroidism, unspecified (2) Paroxysmal atrial fibrillation: Code(s): I48.0 - Paroxysmal atrial fibrillation (3) Impaired fasting blood sugar: Code(s): R73.01 - Impaired fasting glucose (4) Lipid disorder: Code(s): E78.9 - Disorder of lipoprotein metabolism, unspecified (5) Overweight (BMI 25.0-29.9): Code(s): E66.3 - Overweight Plan Patient is a 57-year-old male came in today for his regular 6 month follow-up appointment Paroxysmally atrial fibrillation, managed by Dr. Adame cardiology, Patient is in AFib today, I have told him to start taking aspirin at least that he has not been taking Hypothyroidism: Patient is on Synthroid 112 mcg his TSH is within normal range. Lipid disorder: Continue simvastatin 80 mg lipids are controlled. Labs done recently reviewed with the patient. His LDL has worsened a little bit from 97-112 Impaired fasting sugar , diet-controlled Medication refills sent follow-up 6 months Orders: Orders Complete Blood Count Auto Diff Today E03.9 - Hypothyroidism, unspecified, E66.3 - Overweight, E78.9 - Disorder of lipoprotein metabolism, unspecified, I48.0 - Paroxysmal atrial fibrillation, R73.01 - Impaired fasting glucose, Z12.5 - Encounter for screening for malignant neoplasm of prostate Comprehensive [place]. Panel Fast Today E03.9 - Hypothyroidism, unspecified, E66.3 - Overweight, E78.9 - Disorder of lipoprotein metabolism, unspecified, I48.0 - Paroxysmal atrial fibrillation, R73.01 - Impaired fasting glucose, Z12.5 - Encounter for screening for malignant neoplasm of prostate Lipid Panel Today E03.9 - Hypothyroidism, unspecified, E66.3 - Overweight, E78.9 - Disorder of lipoprotein metabolism, unspecified, I48.0 - Paroxysmal atrial fibrillation, R73.01 - Impaired fasting glucose, Z12.5 - Encounter for screening for malignant neoplasm of prostate TSH reflex Free T4 Today E03.9 - Hypothyroidism, unspecified, E66.3 - Overweight, E78.9 - Disorder of lipoprotein metabolism, unspecified, I48.0 - Paroxysmal atrial fibrillation, R73.01 - Impaired fasting glucose, Z12.5 - Encounter for screening for malignant neoplasm of prostate Hemoglobin A1c Today R73.01 - Impaired fasting glucose Medications: Refilled Synthroid (levothyroxine) 112 mcg PO DAILY 90 days 90 tabs 1RF NS Coding Level of Care Code Est Pt Level 3 (99303) Diagnoses Acquired hypothyroidism E03.9 Paroxysmal atrial fibrillation I48.0 Impaired fasting blood sugar R73.01 Lipid disorder E78.9 Overweight (BMI 25.0-29.9) E66.3 Additional Codes DOMONIQUE-7 Assessment Billing - DOMONIQUE-7 Assessment Tool: DOMONIQUE-7 Assessment 72473 ([id number])
== END 2023-03-17 17:03 | disposition home or self-care (01) ==
PROVIDERS: PCP Internal Medicine; Visit Provider Internal Medicine
DX: E03.9 Hypothyroidism, unspecified (principal); I48.0 Paroxysmal atrial fibrillation; R73.01 Impaired fasting glucose; E78.9 Disorder of lipoprotein metabolism, unspecified; E66.3 Overweight
CPT/HCPCS: 99213

== ENCOUNTER 2023-08-16 13:19 | Outpatient (AMB) | payer BC, SELFPAY ==
--- NOTE | 2023-08-16 13:28 | A.OFFVIS_ITS ---
Vital Signs 08/16/23 13:29 Height 5 ft 9 in Weight 185 lb 3.013 oz BMI 27.3 BP 120/76 Blood Pressure Location Lt brachial Position Sitting Pulse 103 H Intake Visit Reasons: 1 year follow up Intake Note: 1 year follow-up with ekg going into afib more often [employer] Required: No Allergies No Known Allergies Allergy (Mild, Verified 03/17/23 15:37) NOT APPLICABLE Medication List - Last Reconciled 08/16/23 by Eliseo Adame MD atorvastatin 80 mg PO DAILY latanoprost 0.005% 1 drp ophthalmic (eye) BEDTIME Synthroid (levothyroxine) 112 mcg PO DAILY 90 days NS HPI Comments Details: Evan comes for follow-up. Noted to be in atrial fibrillation today with rapid ventricular response. He said he has been in atrial fibrillation for few months. He did not decide to call us because he did not want to bother rest. However he said he has been noticing increased exertional shortness of breath with activity such as hiking and chopping wood. He denies any orthopnea, PND. Knows that his heart rate is elevated but denies any clear palpitations. No lightheadedness, syncope. No exertional chest pain. He has been monitoring his heart rate and knew that he was in atrial fibrillation [facility] Medical History (Updated 08/16/23 @ 13:51 by Eliseo Adame MD) Persistent atrial fibrillation History of thyroid storm Lipid disorder Paroxysmal atrial fibrillation Other specified hypothyroidism Surgical History Hx of colonoscopy History of wisdom tooth extraction Family History Father Cancer of prostate Colon polyps Mother No problems noted. Maternal Grandfather Leukemia Maternal Grandmother No problems noted. Paternal Grandmother No problems noted. Paternal Grandfather No problems noted. Brother No problems noted. Brother No problems noted. Brother No problems noted. Sister No problems noted. Social History Housing: House Alcohol intake: never Patient Tobacco Use Status: Never used Tobacco e-Cigarette/Vaping Use: Never Used Second Hand Smoke Exposure: No Current occupational status: employed Cognitive needs: No Hearing needs: No Vision needs: Yes Review of Systems Const Denies chills, Denies fatigue, Denies fever(s), Denies frequent falls, Denies weakness, Denies weight gain and Denies weight loss ENT Denies dizziness Card Denies chest pain, Denies leg edema, Denies lightheadedness, Denies palpitations, Denies dyspnea, Denies dyspnea on exertion, Denies orthopnea and Denies other (loss of consciousness) Resp Denies cough, Denies dyspnea and Denies dyspnea on exertion GI Denies hematochezia and Denies change in stool character Musc Denies abnormal gait, Denies muscle weakness, Denies numbness, Denies radiating pain into limb and Denies tingling Neuro Denies abnormal gait, Denies dizziness, Denies frequent falls, Denies numbness, Denies tingling and Denies weakness Endo Denies fatigue and Denies palpitations Physical Exam Vital Signs: Last Vital Signs Pulse 103 H 08/16/23 13:29 BP 120/76 08/16/23 13:29 BMI result Body Mass Index 27.3 Const General: cooperative, comfortable, no acute distress, well developed, alert and awake Nutritional Appearance: average body habitus Orientation/consciousness: patient oriented x3 Limitations: no limitations Neck Neck: Yes trachea midline, Yes supple and Yes no JVD Resp Effort & Inspection: normal respiratory effort Auscultation: clear to auscultation bilaterally Cardio Jugular venous distension: no JVD Palpation: normal PMI Rate: tachycardic Rhythm: abnormal rhythm irregularly irregular Heart sounds: S1 normal heart sound present, S2 normal heart sound present, no click, no gallops, no murmurs and no rubs Peripheral pulses: Peripheral pulses 2+ throughout GI Auscultation: normal bowel sounds Skin General skin exam: no rashes or lesions noted Neuro General: patient oriented x3 and no focal motor deficits Extrem General: Yes no clubbing, cyanosis or edema Psych Appearance: grossly normal Office Procedures EKG Details: EKG shows atrial fibrillation with rightward axis with nonspecific ST T wave changes 31039-[id number], Complete Assessment & Plan Assessment & Plan (1) Persistent atrial fibrillation: Comment: Converted to sinus rhythm with metoprolol therapy. Code(s): I48.19 - Other persistent atrial fibrillation Category: Medical Plan: Persistent atrial fibrillation which appears to be symptomatic. He has been present for few months. He is having symptoms of exertional intolerance with shortness of breath and fatigue. I think this is related to loss of AV synchrony. Does not have any clear symptoms of palpitation although he recognizes that his heart rate is faster. I think he will benefit from rhythm control approach. Will restart Toprol XL 25 mg daily and also start him on Xarelto 20 mg daily. Once he has 4 weeks of oral anticoagulation will schedule him for synchronized cardioversion. It is possible that he may convert to sinus rhythm by itself with metoprolol therapy. Most likely will require rhythm control with antiarrhythmic drug given his symptoms and recurrent nature of atrial fibrillation. Will obtain an echocardiogram to evaluate LV systolic and diastolic function more importantly biatrial chamber size. Risks, benefits, alternatives to synchronized cardioversion was discussed with him. He understands agrees. Will follow up in the clinic after the cardioversion. Thank you for allowing me to partake in his care Orders: Orders Cardioversion 4 Weeks I48.19 - Other persistent atrial fibrillation CA echo transthoracic complete Today I48.19 - Other persistent atrial fibrillation Medications: New metoprolol succinate ER (Toprol XL) 25 mg PO DAILY 30 tabs 5RF I48.19 - Other persistent atrial fibrillation rivaroxaban (Xarelto) must administer with evening meal 20 mg PO DAILY 30 tabs 5RF I48.19 - Other persistent atrial fibrillation Coding Level of Care Code Est Pt Level 4 (00761) Diagnoses Persistent atrial fibrillation I48.19 CPT Codes EKG - CPT: 31431-[id number], Complete ([id number])
[2023-08-16 13:29] VITALS: BP 120/76; PULSE 103; BMI 27.3
== END 2023-08-16 13:56 | disposition home or self-care (01) ==
PROVIDERS: Visit Provider Internal Medicine Cardiovascular Disease
DX: I48.19 Other persistent atrial fibrillation (principal)
CPT/HCPCS: 93010; 99214

== ENCOUNTER → 2023-08-16 13:19 | Outpatient (BNVA) | payer BC, SELFPAY | PROVIDERS: Visit Provider Internal Medicine Cardiovascular Disease | DX: I48.19 Other persistent atrial fibrillation (principal) | CPT/HCPCS: 93005 ==

== ENCOUNTER → 2023-09-03 14:24 | Outpatient (REF) | payer BC, SELFPAY ==
--- NOTE | 2023-09-03 14:29 | CA_ITS ---
Transthoracic Echocardiogram Patient (Last, First, Middle): Evan Morris D Gender: Male Date of : 1965 Age: 58 Procedure Date: 09/03/2023 Procedure Type: Transthoracic Echocardiogram Location: OP Height: 175.26 cm Weight: 84.82 kg BSA: 2.01 m2 Heart Rate: bpm BP: 116 / 60 mmHg Product Safety Technician: Referring MD: Eliseo Adame MD Corn Shredder: Eliseo Adame MD Symptoms: I48.19 - Other persistent atrial fibrillation Study Quality: Good ECG Rhythm: Atrial Fibrillation Conclusions: - 1. Severely reduced LV ejection fraction at 25-30% with mild LVH 2. Moderately dilated left atrium 3. Cardiac valvular Doppler within normal limits 4. No gross pericardial effusion Findings Left Ventricle Normal left ventricular cavity size. There is mildly increased left ventricular wall thickness. The left ventricular systolic function is severely decreased. The visually estimated ejection fraction is between 25 30%. Diastolic function is indeterminate on the basis of available data. Right Ventricle Normal right ventricular cavity size and systolic function. Atria The left atrium is moderately dilated. There is no evidence of interatrial shunt. The right atrium is mildly dilated. Aortic Valve Normal aortic valve structure and function. There is no aortic valve stenosis. There is no aortic valve regurgitation. Mitral Valve Normal mitral valve structure and function. There is trace mitral valve regurgitation. There is no mitral valve stenosis. Pulmonic Valve The pulmonic valve is likely normal. There is trace pulmonic valve regurgitation. Tricuspid Valve Normal tricuspid valve structure. There is mild tricuspid valve regurgitation. The right ventricular systolic pressure is normal. The right ventricular systolic pressure is 29 mmHg. Normal right atrial pressure. There is no evidence of pulmonary hypertension. Great Vessels The aorta was not well visualized. The pulmonary artery was not well visualized. Venous The inferior vena cava was not well visualized. Pericardium/Pleural There is no evidence of pericardial effusion. Prior Study Comparison Significant changes compared to prior study dated: 06/17/2022. LV systolic function is significantly reduced Measurements 2D Linear Measurements IVSd: 1.22 0.6-0.9/0.6-1.0 cm LVIDd: 5.53 3.9-5.3/4.2-5.9 cm LVIDd Index: 2.75 2.4-3.2/2.2-3.1 cm/m2 LVIDs: 4.67 2.0-3.6 cm LVPWd: 1.26 0.7-1.1 cm LA Diam: 4.80 2.7-3.8/3.0-4.0 cm LAIDs Index: 2.39 1.5-2.3 cm/m2 LV Mass: 358.60 67-162/88-224 g LV Mass Index: 178.41 43-95/49-115 g/m2 2D Systolic Function EF 4C: 35.70 >55% EF 2C: 26.90 >55% EF BiP: 27.00 >55% Mitral Valve MV Pk E: 0.72 MV Decel Time: 214.00 E'Lateral: 10.10 E'Medial: 6.09 E/E' Med: 11.80 E/E' Lat: 7.10 PHT: 63.00 MVA PHT: 3.49 Decel [place]: 3.35 Aortic Valve AoV Pk Kristopher: 0.65 AoV Mn Kristopher: 0.40 AoV VTI: 0.13 AoV Pk Grad: 2.00 Aov Mn Grad: 1.00 LVOT LVOT Pk Kristopher: 0.71 LVOT Mn Kristopher: 0.43 LVOT VTI: 0.12 LVOT Pk Grad: 2.00 LVOT Mn Grad: 1.00 Diastolic Function MV Pk E: 0.72 E'Medial: 6.09 E/E' Med: 11.80 E' Laterial: 10.10 E/E' Lat: 7.10 Right Ventricle TAPSE (mm): 18.00 TVS' Kristopher: 8.00 Tricuspid Valve TR Pk Kristopher: 2.55 TR Pk Grad: 26.00 RA Press: 3.00 RVSP: 29.00 Pulmonary Valve PV Pk Kristopher: 0.67 Peak PV Grad: 2.00 Updated in Other Vendor System with Status of Final Eliseo Adame MD electronically signed on 09/06/2023 12:16:56 PM with status of Final
== END ==
LOC: HO.CARD 14:24
PROVIDERS: PCP Internal Medicine; Visit Provider Internal Medicine Cardiovascular Disease
DX: I48.19 Other persistent atrial fibrillation (principal)
CPT/HCPCS: 93306

== ENCOUNTER → 2023-09-03 14:29 | Outpatient (BNV) | payer BC, SELFPAY | PROVIDERS: PCP Internal Medicine; Visit Provider Internal Medicine Cardiovascular Disease | DX: I36.1 Nonrheumatic tricuspid (valve) insufficiency (principal); I51.89 Other ill-defined heart diseases | CPT/HCPCS: 93306 ==

== ENCOUNTER 2023-09-11 06:32 | Outpatient (REF) | payer BC, SELFPAY ==
[2023-09-11 10:56] LABS: MANUAL DIFF FLAG NO
[2023-09-11 10:58] LABS: Basophils Absolute Auto 0.1 X10*3/uL (0.0-0.2); Basophils Percent Auto 0.8 % (0-2); Eosinophils Absolute Auto 0.2 X10*3/uL (0.0-0.4); Eosinophils Percent Auto 2.4 % (0-4); Hematocrit 51.5 % (42.0-52.0); Hemoglobin 17.5 g/dl (14.0-18.0); Imm Gran Abs Auto 0.02 X10*3/uL (0.00-0.03); Imm Gran Pct Auto 0.3 % (0.0-0.4); Lymphocytes Absolute Auto 1.9 X10*3/uL (1.2-4.9); Lymphocytes Percent Auto 29.2 % (20-40); Mean Corpuscular Hemoglobin 31.4 pg (27.0-33.0); Mean Corpuscular Volume 92.5 fL (80.0-98.0); Mean Platelet Volume 11.5 fL (9.4-12.4); Monocytes Absolute Auto 0.6 X10*3/uL (0.1-1.2); Monocytes Percent Auto 9.8 % (2-11); Neutrophils Absolute Auto 3.6 x10*3/uL (2.0-8.3); Neutrophils Percent Auto 57.5 % (45-73); Platelet Count 187 X10*3/uL (160-400); Red Blood Count 5.57 X10*6/uL (4.60-5.80); Red Cell Distribution Width 12.4 % (11.0-16.0); White Blood Count 6.3 X10*3/uL (4.8-10.8)
[2023-09-11 11:22] LABS: Estimated Average Glucose 117 mg/dL; Hemoglobin A1c % 5.7 % (<6.0)
[2023-09-11 11:31] LABS: Alanine Aminotransferase 24 U/L (0-40); Albumin Level 4.4 g/dL (3.5-5.0); Alkaline Phosphatase 81 U/L (39-117); Anion Gap 14 (12-20); Aspartate Amino Transferase 23 U/L (5-37); Bilirubin Total 1.3 mg/dL (0.0-1.0); Blood Urea Nitrogen 19 mg/dL (9-16); Calcium 9.3 mg/dL (8.4-10.2); Carbon Dioxide 26 mmol/L (22-29); Chloride 105 mmol/L (96-108); Cholesterol 144 mg/dL (<200); Estimated Glomerular Filt Rate > 60; Glucose Fasting 88 mg/dL (60-99); HDL Cholesterol 54 mg/dL (>40); LDL Cholesterol Calculated 73 mg/dL (<100); Potassium 4.4 mmol/L (3.3-5.1); Sodium 141 mmol/L (135-145); Total Protein 7.3 g/dL (6.5-8.0); Triglycerides 88 mg/dL (<150)
[2023-09-11 11:47] LABS: TSH reflex Free T4 0.92 uIU/mL (0.32-4.0)
== END 2023-09-11 06:33 | disposition home or self-care (01) ==
LOC: HO.HMGCLDS 06:32
PROVIDERS: PCP Internal Medicine; Visit Provider Internal Medicine
DX: E78.9 Disorder of lipoprotein metabolism, unspecified (principal); I48.0 Paroxysmal atrial fibrillation; E66.3 Overweight; R73.01 Impaired fasting glucose; E03.9 Hypothyroidism, unspecified; Z12.5 Encounter for screening for malignant neoplasm of prostate
CPT/HCPCS: 36415; 80053; 80061; 83036; 84443; 85025

== ENCOUNTER 2023-09-15 09:08 | Day surgery (SDC) | payer BC, SELFPAY ==
--- NOTE | 2023-09-13 13:10 | HO.ANESPROP2 ---
Documented by User: Tasneem Noel NP 09/13/23 13:11 HPI - Anesthesia Eval Consult details Narrative: 58yo M for Cardioversion Xarelto for afib PMFSH Active Problems Active Problems: All Active Problems Persistent atrial fibrillation (Acute) Encounter for general adult medical examination with abnormal findings (Acute) Colon cancer screening (Acute) Acquired hypothyroidism (Acute) Screening for prostate cancer (Acute) Impaired fasting blood sugar (Acute) Overweight (BMI 25.0-29.9) (Acute) Paroxysmal atrial fibrillation (Acute) Lipid disorder (Acute) Other specified hypothyroidism (Acute) Past Medical History Medical History Persistent atrial fibrillation History of thyroid storm Lipid disorder Paroxysmal atrial fibrillation Other specified hypothyroidism Family History Family History Father Cancer of prostate Colon polyps Mother No problems noted. Maternal Grandfather Leukemia Maternal Grandmother No problems noted. Paternal Grandmother No problems noted. Paternal Grandfather No problems noted. Brother No problems noted. Brother No problems noted. Brother No problems noted. Sister No problems noted. Family history of problems with anesthesia: No Surgical History Surgical History Hx of colonoscopy History of wisdom tooth extraction History of Problems with Anesthesia: No Social History Social History Housing: House Alcohol intake: never Patient Tobacco Use Status: Never used Tobacco e-Cigarette/Vaping Use: Never Used Second Hand Smoke Exposure: No Advance Directives: No Advance Directives Information Provided: Yes Current occupational status: employed Cognitive needs: No Hearing needs: No Vision needs: Yes Meds Allergies Allergy/AdvReac Type Severity Reaction Status Date / Time No Known Allergies Allergy Mild NOT Verified 03/17/23 15:37 APPLICABLE Home Medications ?Medication ?Instructions ?Recorded ?Confirmed ?Last Taken ?Type latanoprost 0.005 % eye drops 1 drp ophthalmic (eye) BEDTIME 03/13/20 08/16/23 Unknown History Exam Pertinent Lab Results Pertinent Lab Results: Laboratory Tests 09/11/23 06:38 WBC 6.3 Hgb 17.5 Hct 51.5 Plt Count 187 Sodium 141 Potassium 4.4 Chloride 105 Carbon Dioxide 26 BUN 19 H Creatinine 0.97 Narrative Narrative: ECHO 08/2023 Conclusions: - 1. Severely reduced LV ejection fraction at 25-30% with mild LVH 2. Moderately dilated left atrium 3. Cardiac valvular Doppler within normal limits 4. No gross pericardial effusion Assessment and Plan Assessment Anesthesia Assessment: Chart Reviewed Final Anesthetic Review Family History of Problems with Anesthesia: No History of Problems with Anesthesia: No Documented by User: Ellie Cm MD 09/15/23 09:29 [facility] Past Medical History Medical History Persistent atrial fibrillation History of thyroid storm Lipid disorder Paroxysmal atrial fibrillation Other specified hypothyroidism Family History Family History Father Cancer of prostate Colon polyps Mother No problems noted. Maternal Grandfather Leukemia Maternal Grandmother No problems noted. Paternal Grandmother No problems noted. Paternal Grandfather No problems noted. Brother No problems noted. Brother No problems noted. Brother No problems noted. Sister No problems noted. Surgical History Surgical History Hx of colonoscopy History of wisdom tooth extraction Social History Social History Housing: House Alcohol intake: never Patient Tobacco Use Status: Never used Tobacco e-Cigarette/Vaping Use: Never Used Second Hand Smoke Exposure: No Advance Directives: No Advance Directives Information Provided: Yes Current occupational status: employed Cognitive needs: No Hearing needs: No Vision needs: Yes Meds Allergies Allergy/AdvReac Type Severity Reaction Status Date / Time No Known Allergies Allergy Mild NOT Verified 03/17/23 15:37 APPLICABLE Home Medications ?Medication ?Instructions ?Recorded ?Confirmed ?Last Taken ?Type latanoprost 0.005 % eye drops 1 drp ophthalmic (eye) BEDTIME 03/13/20 08/16/23 Unknown History Exam Airway Mallampati Class: II TM Dist: >3cm Neck ROM: Full Heart: afib Lungs: cta Assessment and Plan Assessment Anesthesia Assessment: Anesthesia Plan Discussed Final Anesthetic Review NPO: Yes ASA Class: III and Emergency Final Preanesthetic Review: No Changes in Pt Med Stat, Meds/Allgs Chart Reviewed, Consent Obtained/Reviewed and Anes Risks/Benef Reviewed Patient Risk: Intermediate Procedure Risk: Low Anesthetic Plan Anesthetic Plan: MAC: Disposition: Standard PACU
[2023-09-15 09:40] VITALS: BP 119/84; PULSE 87; RESP 16; TEMP 37.2; O2SAT 96; BMI 27.9
[2023-09-15] MEDS: Lactated Ringers 1,000 ML 50 ML IVCONT (10:24)
--- NOTE | 2023-09-15 10:27 | MHC.SHP ---
Pre-Procedural Eval Section A - 24 Hr Update-Section A only Date of Service: 09/15/23 The patient is an INPATIENT: No Changes since office visit: Yes New Medical Problems and Yes Patient answered all questions; No Cold of Flu in the past 2 weeks and No Changes in Medication The patient has been examined within 24 hours of the surgical procedure. The History & Physical has been completed within 30 days and I have reviewed it.: Yes Section B - Complete if H&P > 30 days Chief Complaint: Other persistent atrial fibrillation Allergies: Allergies Allergy/AdvReac Type Severity Reaction Status Date / Time No Known Allergies Allergy Mild NOT Verified 09/15/23 09:38 APPLICABLE Plan I have reviewed the history and physical and performed a pertinent physical examination on my patient. No changes have occurred unless specified. Time Spent With Patient Time: Total time managing care of this patient today ____ minutes.
--- NOTE | 2023-09-15 10:47 | HO.CARDIVERS ---
Cardioversion Procedure Note Cardioversion Date of Procedure: 09/15/23 Ordering Provider: Ru Adame Performing Provider: Ru Adame Indication for Procedure: Persistent atrial fibrillation with symptoms with reduced LV systolic function Pre-Op Diagnosis: Same Post-Op Diagnosis: Same Performed with Transesophageal Echo: No History: See office note Consent: Verbal and Written consent was obtained from the patient before starting. The patient was made aware of the risk of Synchronized cardioversion including benefits and alternatives] Procedure: After consent obtained, cardioversin pads were attached In anteroposterior configuration and the patient was sedated by the anesthesia team. Once adequate sedation achieved, Patient was delivered 200 joules of biphasic synchronized energy in anteroposterior configuration x2 Complications: none Impression: . Unsuccessful cardioversion Recommendations: 1. Load with amiodarone 400 mg b.i.d. for 2 weeks followed by 200 mg daily 2. Continue full oral anticoagulation with Xarelto 3. Repeat cardioversion in 2 weeks time
[2023-09-15 10:48] VITALS: BP 125/98; PULSE 89; RESP 18; TEMP 36.5; O2SAT 97
[2023-09-15 10:52] VITALS: BP 111/84; PULSE 77; RESP 17; O2SAT 98
[2023-09-15 10:57] VITALS: BP 110/82; PULSE 76; RESP 16; O2SAT 97
[2023-09-15 11:02] VITALS: BP 109/79; PULSE 83; RESP 17; O2SAT 97
[2023-09-15 11:17] VITALS: BP 119/80; PULSE 82; RESP 18; TEMP 36.1; O2SAT 98
== END 2023-09-15 12:00 | disposition home or self-care (01) ==
PROVIDERS: PCP Internal Medicine; Visit Provider Internal Medicine Cardiovascular Disease
PROC: 5A2204Z Restoration of Cardiac Rhythm, Single (ICD-10-PCS; principal; 2023-09-15 11:30)
DX: I48.19 Other persistent atrial fibrillation (principal); I50.20 Unspecified systolic (congestive) heart failure; Z79.01 Long term (current) use of anticoagulants; E03.9 Hypothyroidism, unspecified; Z79.899 Other long term (current) drug therapy
CPT/HCPCS: 92960; J2704

== ENCOUNTER → 2023-09-15 09:08 | Outpatient (BNV) | payer BC, SELFPAY | PROVIDERS: PCP Internal Medicine; Visit Provider Internal Medicine Cardiovascular Disease | DX: I48.19 Other persistent atrial fibrillation (principal) | CPT/HCPCS: 92960 ==

== ENCOUNTER 2023-09-24 14:06 | Outpatient (AMB) | payer BC, SELFPAY ==
--- NOTE | 2023-09-24 14:11 | MHC.PC.OV ---
Vital Signs 09/24/23 14:12 Height 5 ft 9 in Weight 189 lb BMI 27.9 BP 126/78 Blood Pressure Location Rt brachial Position Sitting Pulse 86 Pulse Source Pulse Oximeter Pulse Oximetry (%) 98 Oxygen Delivery Method Room Air Intake Visit Reasons: Annual PE Allergies No Known Allergies Allergy (Mild, Verified 09/24/23 14:13) NOT APPLICABLE Medication List - Last Reconciled 09/24/23 by Mateo Mcginnis MD amiodarone 400 mg PO BID atorvastatin 80 mg PO DAILY latanoprost 0.005% 1 drp ophthalmic (eye) BEDTIME metoprolol succinate ER (Toprol XL) 25 mg PO DAILY rivaroxaban (Xarelto) 20 mg PO DAILY Synthroid (levothyroxine) 112 mcg PO DAILY 90 days NS Tobacco use date assessed: 09/24/23 Dental Screening Dental Screen Date: 09/24/23 Did you have a dental visit in the last 12 months?: Yes Did you have a dental problem in the last 6 months where you did not have access to dental care?: No Was dental information given to patient?: Patient has dentist HPI Annual PE HPI Details Patient is a 58-year-old gentleman came in today for physical examination Patient is stable and is doing well Colonoscopy May 2022 Dr. Jaramillo Q[address] Adame yearly for paroxysmal atrial fibrillation Labs done recently reviewed, TSH is within normal limit Patient is on Synthroid 112 mcg daily Other medications are atorvastatin 80 mg and metoprolol 25 mg Along with Xarelto for chronic paroxysmal atrial fibrillation through Cardiology He is also on amiodarone 400 mg b.i.d. [facility] Medical History History of thyroid storm Persistent atrial fibrillation Lipid disorder Paroxysmal atrial fibrillation Other specified hypothyroidism Surgical History Hx of colonoscopy History of wisdom tooth extraction Family History Father Cancer of prostate Colon polyps Mother No problems noted. Maternal Grandfather Leukemia Maternal Grandmother No problems noted. Paternal Grandmother No problems noted. Paternal Grandfather No problems noted. Brother No problems noted. Brother No problems noted. Brother No problems noted. Sister No problems noted. Social History Housing: House Alcohol intake: never Patient Tobacco Use Status: Never used Tobacco e-Cigarette/Vaping Use: Never Used Second Hand Smoke Exposure: No Current occupational status: employed Cognitive needs: No Hearing needs: No Vision needs: Yes Questionnaire PHQ-9 Over the last 2 weeks, how often have you been bothered by any of the following problems? 1. Little interest or pleasure in doing things: not at all 2. Feeling down, depressed, or hopeless: not at all 3. Trouble falling or staying asleep, or sleeping too much: not at all 4. Feeling tired or having little energy: not at all 5. Poor appetite or overeating: not at all 6. Feeling bad about yourself - or that you are a failure or have let yourself or your family down: not at all 7. Trouble concentrating on things, such as reading the newspaper or watching television: not at all 8. Moving or speaking so slowly that other people could have noticed. Or the opposite - being so fidgety or restless that you have been moving around a lot more than usual: not at all 9. Thoughts that you would be better off or of hurting yourself in some way: not at all Total score: 0 Depression Screening Interpretation: Negative Depression Screening Done: Yes 10750 - PHQ-9 Billing: Yes Source: Developed by Drs. Desmond Meraz, Hyun Morales, Kit Hyde and colleagues, with an educational beatrice from [employer]. Thrive Questionnaire Date Thrive assessed: 09/24/23 I am a: Patient What is your living situation today?: I have a steady place to live Within the past 12 months, did the food you bought not last and you didn't have the money to get more?: Never true Within the past 12 months, did you worry whether your food would run out before you got money to buy more?: Never true Do you have trouble paying for medicines?: No Do you have trouble getting transportation to medical appointments?: No Do you have trouble paying your heating and electricity bill?: No Do you have trouble taking care of your child, family member or friend?: No Do you have trouble with day-to-day activities such as bathing, preparing meals, shopping, managing finances, etc.?: No Are you currently unemployed and looking for a job?: No Are you interested in more education?: No Please select the resources that you would like help with: None Currently or been in a relationship where the following occur: I choose not to answer THRIVE Score: 0 AUDIT C Alcohol Use Questionnaire (AUDIT-C) 1. How often do you have a drink containing alcohol?: Never 3. How often do you have six or more drinks on one occasion?: Never Total Score: 0 DOMONIQUE-7 AMB Questionnaire DOMONIQUE-7 Date DOMONIQUE - 7 assessed: 09/24/23 Feeling nervous, anxious, or on edge: 0 = Not at all Not being able to stop or control worryin = Not at all Worrying too much about different things: 0 = Not at all Trouble relaxin = Not at all Being so restless that it is hard to sit still: 0 = Not at all Becoming easily annoyed or irritable: 0 = Not at all Feeling afraid as if something awful might happen: 0 = Not at all Total DOMONIQUE-7 score (0-4 normal; 5-9 mild; 10-14 moderate; 15-21 severe): 0 Source: Developed by Drs. Desmond Meraz, Hyun Morales, Kit Hyde and colleagues, with an educational beatrice from [employer]. DOMONIQUE-7 Assessment Billing DOMONIQUE-7 Assessment Tool: DOMONIQUE-7 Assessment 81680 Review of Systems Const Denies chills, Denies fever(s) and Denies headache(s) Eyes Denies blurry vision ENT Denies headache(s), Denies nasal discharge, Denies nasal obstruction, Denies odynophagia and Denies sinus pain Card Denies chest pain at rest and Denies chest pain with activity Resp Denies cough and Denies hemoptysis GI Denies diarrhea, Denies odynophagia, Denies vomiting and Denies hematemesis Reports as per HPI Musc Denies abnormal gait Skin/Breast Reports as per HPI Neuro Denies Neuro-related abnormal movements, Denies Abnormal speech present, Denies abnormal gait, Denies headache(s) and Denies Sensory deficit (Neuro) Psych Denies mood swings and Denies paranoia Endo Reports as per HPI Robert/Lymph Reports as per HPI Aller/Immun Reports as per HPI Physical exam (Primary Care) Vital Signs: Last Vital Signs Pulse 86 09/24/23 14:12 BP 126/78 09/24/23 14:12 Pulse Ox 98 09/24/23 14:12 Oxygen Delivery Method Room Air 09/24/23 14:12 BMI result Body Mass Index 27.9 Tobacco/Smoking Status: Tobacco use Status Tobacco use date assessed 09/24/23 09/24/23 14:17 Patient Tobacco Use Status Never used Tobacco 09/24/23 14:12 e-Cigarette/Vaping Use Never Used 09/24/23 14:12 Depression Screening Interpretation: Negative Thrive Assessment: Date of Thrive Assessment Date Thrive assessed 03/17/23 09/24/23 14:12 Currently or been in a relationship where the following occur: I choose not to answer Const General: cooperative, comfortable and no acute distress Orientation/consciousness: patient oriented x3 HENMT Head: Yes normocephalic and Yes atraumatic Eyes General: appearance normal, both eyes and all related structures Pupils: Equal, round and reactive pupils present EOM: EOMs intact bilaterally Neck Neck: Yes supple and No lymphadenopathy Thyroid: Thyroid normal Lymphatic: no lymphadenopathy noted Resp Effort & Inspection: normal respiratory effort and able to speak in complete sentences Auscultation: clear to auscultation bilaterally Cardio Heart sounds: S1 normal heart sound present and S2 normal heart sound present GI Palpation (GI): Soft to palpation and nontender Auscultation: normal bowel sounds General: Yes no CVA tenderness Back/Spine/Pelvis Back: no CVA tenderness Skin General skin exam: elasticity normal and turgor normal Neuro General: patient oriented x3 and gait normal Cranial nerves: Yes Equal, round and reactive pupils present Speech: No Abnormal speech present Sensory Exam: No Sensory deficit (Neuro) Coordination: tandem gait normal and Romberg test negative Extrem General: Yes normal exam except as noted and No edema Assessment and Plan Assessment & Plan (1) Adult general medical exam: Code(s): Z00.00 - Encounter for general adult medical examination without abnormal findings (2) Acquired hypothyroidism: Code(s): E03.9 - Hypothyroidism, unspecified (3) Paroxysmal atrial fibrillation: Code(s): I48.0 - Paroxysmal atrial fibrillation (4) Impaired fasting blood sugar: Code(s): R73.01 - Impaired fasting glucose (5) Lipid disorder: Code(s): E78.9 - Disorder of lipoprotein metabolism, unspecified (6) Overweight (BMI 25.0-29.9): Code(s): E66.3 - Overweight Plan Patient is a 58-year-old gentleman came in today for physical examination Patient is stable and is doing well Colonoscopy May 2022 Dr[address] Clint Carcamo[address] Adame yearly for paroxysmal atrial fibrillation Labs done recently reviewed, TSH is within normal limit Patient is on Synthroid 112 mcg daily Other medications are atorvastatin 80 mg and metoprolol 25 mg Along with Xarelto for chronic paroxysmal atrial fibrillation through Cardiology He is also on amiodarone 400 mg b.i.d. Orders: Orders Complete Blood Count Auto Diff 6 Months E03.9 - Hypothyroidism, unspecified, E78.9 - Disorder of lipoprotein metabolism, unspecified, I48.0 - Paroxysmal atrial fibrillation, R73.01 - Impaired fasting glucose TSH reflex Free T4 6 Months E03.9 - Hypothyroidism, unspecified, E78.9 - Disorder of lipoprotein metabolism, unspecified, I48.0 - Paroxysmal atrial fibrillation, R73.01 - Impaired fasting glucose Comprehensive [place]. Panel Fast 6 Months E03.9 - Hypothyroidism, unspecified, E78.9 - Disorder of lipoprotein metabolism, unspecified, I48.0 - Paroxysmal atrial fibrillation, R73.01 - Impaired fasting glucose Lipid Panel 6 Months E03.9 - Hypothyroidism, unspecified, E78.9 - Disorder of lipoprotein metabolism, unspecified, I48.0 - Paroxysmal atrial fibrillation, R73.01 - Impaired fasting glucose Coding Level of Care Code Est Pt Prev Care 40-64y(38296) Diagnoses Adult general medical exam Z00.00 Acquired hypothyroidism E03.9 Paroxysmal atrial fibrillation I48.0 Impaired fasting blood sugar R73.01 Lipid disorder E78.9 Overweight (BMI 25.0-29.9) E66.3 Additional Codes DOMONIQUE-7 Assessment Billing - DOMONIQUE-7 Assessment Tool: DOMONIQUE-7 Assessment 54314 ([id number])
[2023-09-24 14:12] VITALS: BP 126/78; PULSE 86; O2SAT 98; BMI 27.9
== END 2023-09-24 14:40 | disposition home or self-care (01) ==
PROVIDERS: PCP Internal Medicine; Visit Provider Internal Medicine
DX: Z00.00 Encounter for general adult medical examination without abnormal findings (principal); E03.9 Hypothyroidism, unspecified; I48.0 Paroxysmal atrial fibrillation; R73.01 Impaired fasting glucose; E78.9 Disorder of lipoprotein metabolism, unspecified; E66.3 Overweight
CPT/HCPCS: 99396

== ENCOUNTER → 2023-09-28 10:48 | Day surgery (SDC) | payer BC, SELFPAY ==
[2023-09-28 11:12] VITALS: BMI 27.8
--- NOTE | 2023-09-28 11:16 | MHC.SHP ---
Pre-Procedural Eval Section A - 24 Hr Update-Section A only Date of Service: 09/28/23 The patient is an INPATIENT: No Changes since office visit: Yes Changes in Medication and Yes Patient answered all questions; No Cold of Flu in the past 2 weeks and No New Medical Problems The patient has been examined within 24 hours of the surgical procedure. The History & Physical has been completed within 30 days and I have reviewed it.: Yes Section B - Complete if H&P > 30 days Chief Complaint: Other persistent atrial fibrillation Allergies: Allergies Allergy/AdvReac Type Severity Reaction Status Date / Time No Known Allergies Allergy Mild NOT Verified 09/28/23 11:09 APPLICABLE Plan I have reviewed the history and physical and performed a pertinent physical examination on my patient. No changes have occurred unless specified. Time Spent With Patient Time: Total time managing care of this patient today ____ minutes.
--- NOTE | 2023-09-28 11:25 | ECG_ITS ---
Test Reason : preop Blood Pressure : / mmHG Vent. Rate : 051 BPM Atrial Rate : 051 BPM P-R Int : 206 ms QRS Dur : 102 ms QT Int : 468 ms P-R-T Axes : 070 051 087 degrees QTc Int : 431 ms Sinus bradycardia Nonspecific T wave abnormality Abnormal ECG When compared with ECG of 08-JAN-2021 12:49, Premature atrial complexes are no longer Present Nonspecific T wave abnormality now evident in Lateral leads Referred By: Eliseo Adame Electronically Signed By:GUZMAN ALONSO
[2023-09-28] MEDS: Amiodarone HCL 200 MG TABLET 400 MG PO ×2 (11:28)
--- NOTE | 2023-09-28 11:35 | PC.NURSE ---
Patient arrived to preop. SB on monitor. Dr. Adame made aware. EKG ordered and obtained. Verified SB. Per Dr. Adame cancelled. OR desk made aware. Patient also aware that morning amidarone was given in preop by this nurse, per Dr. El order, and not to take it again once in car.
--- NOTE | 2023-09-28 11:35 | HO.ANESPROP2 ---
HPI - Anesthesia Eval Consult details Narrative: for cardioversion bec of Afib PMFSH Active Problems Active Problems: All Active Problems Adult general medical exam (Acute) Overweight (BMI 25.0-29.9) (Acute) Impaired fasting blood sugar (Acute) Screening for prostate cancer (Acute) Acquired hypothyroidism (Acute) Colon cancer screening (Acute) Encounter for general adult medical examination with abnormal findings (Acute) Persistent atrial fibrillation (Acute) Paroxysmal atrial fibrillation (Acute) Lipid disorder (Acute) Other specified hypothyroidism (Acute) Past Medical History Medical History (Updated 09/28/23 @ 11:09 by Cecile Castro) History of cardioversion History of thyroid storm Persistent atrial fibrillation Lipid disorder Paroxysmal atrial fibrillation Other specified hypothyroidism Family History Family History Father Cancer of prostate Colon polyps Mother No problems noted. Maternal Grandfather Leukemia Maternal Grandmother No problems noted. Paternal Grandmother No problems noted. Paternal Grandfather No problems noted. Brother No problems noted. Brother No problems noted. Brother No problems noted. Sister No problems noted. Family history of problems with anesthesia: No Surgical History Surgical History Hx of colonoscopy History of wisdom tooth extraction History of Problems with Anesthesia: No Social History Social History Housing: House Alcohol intake: never Patient Tobacco Use Status: Never used Tobacco e-Cigarette/Vaping Use: Never Used Second Hand Smoke Exposure: No Use of substances other than those prescribed or required for medical reasons: No Are you DNR?: No Advance Directives: No Advance Directives Information Provided: Yes Current occupational status: employed Cognitive needs: No Hearing needs: No Vision needs: Yes Meds Allergies Allergy/AdvReac Type Severity Reaction Status Date / Time No Known Allergies Allergy Mild NOT Verified 09/28/23 11:09 APPLICABLE Active Medications: Current Medications Lactated Ringer's (Lr) 1,000 mls @ 80 mls/hr IVCONT .[id number] LEONOR Sodium Chloride (0.9 % Sodium Chloride Flush 3 Ml Syringe) 3 ml IVFLUSH QSHIFT LEONOR Home Medications ?Medication ?Instructions ?Recorded ?Confirmed ?Last Taken ?Type latanoprost 0.005 % eye drops 1 drp ophthalmic (eye) BEDTIME 03/13/20 09/28/23 Unknown History Exam Height,Weight and Vital Signs: Height 5 ft 9 in Weight 85.275 kg Assessment and Plan Final Anesthetic Review Family History of Problems with Anesthesia: No History of Problems with Anesthesia: No
== END ==
LOC: HO.SSS 10:50
PROVIDERS: PCP Internal Medicine; Visit Provider Internal Medicine Cardiovascular Disease
DX: I48.19 Other persistent atrial fibrillation (principal); Z53.8 Procedure and treatment not carried out for other reasons
CPT/HCPCS: 93005

== ENCOUNTER → 2023-09-28 11:25 | Outpatient (BNV) | payer BC, SELFPAY | PROVIDERS: PCP Internal Medicine; Visit Provider Internal Medicine | DX: R00.1 Bradycardia, unspecified (principal) | CPT/HCPCS: 93010 ==

== ENCOUNTER 2023-10-27 10:20 | Outpatient (AMB) | payer BC, SELFPAY ==
[2023-10-27 10:29] VITALS: BP 110/78; PULSE 52; BMI 27.7
--- NOTE | 2023-10-27 10:29 | A.OFFVIS_ITS ---
Vital Signs 10/27/23 10:29 Height 5 ft 9 in Weight 187 lb 6.287 oz BMI 27.7 BP 110/78 Blood Pressure Location Lt brachial Position Sitting Pulse 52 Intake Visit Reasons: Follow up post cardioversion Intake Note: Follow-up post cardioversion with ekg feeling good [place] [employer] [facility] Required: No Allergies No Known Allergies Allergy (Mild, Verified 09/28/23 11:09) NOT APPLICABLE Medication List - Last Reconciled 10/27/23 by Eliseo Adame MD atorvastatin 80 mg PO DAILY latanoprost 0.005% 1 drp ophthalmic (eye) BEDTIME metoprolol succinate ER (Toprol XL) 25 mg PO DAILY rivaroxaban (Xarelto) 20 mg PO DAILY Synthroid (levothyroxine) 112 mcg PO DAILY 90 days NS HPI Comments Details: Simeon comes for follow-up. Since cardioversion, he has been doing well. He misunderstood his need to take amiodarone. He is currently not taking amiodarone. However he is feeling a lot better. He said he does still sometimes feel short of breath when he pushes himself but he has no signs or symptoms of heart failure. No orthopnea, PND, leg edema. He denies any lightheadedness, syncope. Denies any prolonged irregular heartbeat or palpitations. [facility] Medical History (Updated 10/27/23 @ 11:22 by Eliseo Adame MD) Persistent atrial fibrillation History of cardioversion History of thyroid storm Lipid disorder Paroxysmal atrial fibrillation Other specified hypothyroidism Surgical History Hx of colonoscopy History of wisdom tooth extraction Family History Father Cancer of prostate Colon polyps Mother No problems noted. Maternal Grandfather Leukemia Maternal Grandmother No problems noted. Paternal Grandmother No problems noted. Paternal Grandfather No problems noted. Brother No problems noted. Brother No problems noted. Brother No problems noted. Sister No problems noted. Social History Housing: House Alcohol intake: never Patient Tobacco Use Status: Never used Tobacco e-Cigarette/Vaping Use: Never Used Second Hand Smoke Exposure: No Current occupational status: employed Cognitive needs: No Hearing needs: No Vision needs: Yes Review of Systems Const Denies chills, Denies fatigue, Denies fever(s), Denies frequent falls, Denies weakness, Denies weight gain and Denies weight loss ENT Denies dizziness Card Denies chest pain, Denies leg edema, Denies lightheadedness, Denies palpitation s, Denies dyspnea, Denies dyspnea on exertion, Denies orthopnea and Denies other (loss of consciousness) Resp Denies cough, Denies dyspnea and Denies dyspnea on exertion GI Denies hematochezia and Denies change in stool character Musc Denies abnormal gait, Denies muscle weakness, Denies numbness, Denies radiating pain into limb and Denies tingling Neuro Denies abnormal gait, Denies dizziness, Denies frequent falls, Denies numbness, Denies tingling and Denies weakness Endo Denies fatigue and Denies palpitations Physical Exam Vital Signs: Last Vital Signs Pulse 52 10/27/23 10:29 BP 110/78 10/27/23 10:29 BMI result Body Mass Index 27.7 Const General: cooperative, comfortable, no acute distress, well developed, alert and awake Nutritional Appearance: average body habitus Orientation/consciousness: patient oriented x3 Limitations: no limitations Neck Neck: Yes trachea midline, Yes supple and Yes no JVD Resp Effort & Inspection: normal respiratory effort Auscultation: clear to auscultation bilaterally Cardio Jugular venous distension: no JVD Palpation: normal PMI Rate: bradycardic Rhythm: abnormal rhythm with ectopic beats Heart sounds: S1 normal heart sound present, S2 normal heart sound present, no click, no gallops, no murmurs and no rubs Peripheral pulses: Peripheral pulses 2+ throughout GI Auscultation: normal bowel sounds Skin General skin exam: no rashes or lesions noted Neuro General: patient oriented x3 and no focal motor deficits Extrem General: Yes no clubbing, cyanosis or edema Psych Appearance: grossly normal Office Procedures EKG Details: EKG shows sinus bradycardia with PACs [id number], Complete Assessment & Plan Assessment & Plan (1) Paroxysmal atrial fibrillation: Code(s): I48.0 - Paroxysmal atrial fibrillation Category: Medical Plan: Patient maintain sinus rhythm off amiodarone, has missed some doses. Most likely due to long-term effect of amnio. Will resume amiodarone 100 mg daily. Importance of antiarrhythmic drug therapy given his recurrent atrial fibrillation cardiomyopathy was discussed. Discontinue metoprolol therapy due to baseline sinus bradycardia. Would continue full oral anticoagulation with Xarelto to reduce thromboembolic complication. Continue monitor thyroid function. (2) Cardiomyopathy: Code(s): I42.9 - Cardiomyopathy, unspecified Category: Medical Plan: Cardiomyopathy process due to persistent atrial fibrillation rapid ventricular response. He had similarly cardiomyopathy process 15 years ago when he was 1st diagnose with atrial fibrillation. Anticipate improvement in LV systolic function with maintenance of rhythm. Follow-up limited echocardiogram in 6 weeks time if he remains in sinus rhythm. Also follow-up Holter monitor in 6 weeks time. No signs or symptoms of heart failure. Advised to call me with any worsening symptoms. Will follow up in the clinic in 8 weeks time, sooner p.r.n.. Thank you for allowing me to partake in his care Orders: Orders CA Echo Limited 6 Weeks I42.9 - Cardiomyopathy, unspecified ECG 3 day holter monitor 6 Weeks I48.0 - Paroxysmal atrial fibrillation Medications: New amiodarone 200 mg PO DAILY 30 tabs 4RF Discontinued metoprolol succinate ER (Toprol XL) Discontinued Reason: Doctor's Order 25 mg PO DAILY 30 tabs 5RF I48.19 - Other persistent atrial fibrillation Coding Level of Care Code Est Pt Level 4 (75751) Diagnoses Paroxysmal atrial fibrillation I48.0 Cardiomyopathy I42.9 CPT Codes EKG - CPT: 22987-[id number], Complete ([id number])
== END 2023-10-27 11:27 | disposition home or self-care (01) ==
PROVIDERS: PCP Internal Medicine; Visit Provider Internal Medicine Cardiovascular Disease
DX: I48.0 Paroxysmal atrial fibrillation (principal); I42.9 Cardiomyopathy, unspecified
CPT/HCPCS: 93010; 99214

== ENCOUNTER → 2023-10-27 10:20 | Outpatient (BNVA) | payer BC, SELFPAY | PROVIDERS: PCP Internal Medicine; Visit Provider Internal Medicine Cardiovascular Disease | DX: I48.0 Paroxysmal atrial fibrillation (principal); I42.9 Cardiomyopathy, unspecified; Z79.01 Long term (current) use of anticoagulants | CPT/HCPCS: 93005 ==

== ENCOUNTER → 2023-12-08 07:45 | Outpatient (REF) | payer BC, SELFPAY ==
--- NOTE | 2023-12-08 07:50 | CA_ITS ---
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 There is normal left ventricular wall thickness. The left ventricular systolic function is mild to moderately decreased. The visually estimated ejection fraction is between 40-45%. Spectral Doppler is indicative of a normal filling pattern. Pericardium/Pleural There is no evidence of pericardial effusion. Prior Study Comparison Changes noted compared to prior study dated: 09/03/2023. LV systolic function has improved Measurements 2D Linear Measurements IVSd: 1.12 0.6-0.9/0.6-1.0 cm LVIDd: 6.34 3.9-5.3/4.2-5.9 cm LVIDd Index: 3.20 2.4-3.2/2.2-3.1 cm/m2 LVIDs: 4.69 2.0-3.6 cm LVPWd: 0.85 0.7-1.1 cm LA Diam: 4.30 2.7-3.8/3.0-4.0 cm LAIDs Index: 2.17 1.5-2.3 cm/m2 LV Mass: 331.99 67-162/88-224 g LV Mass Index: 167.67 43-95/49-115 g/m2 LVOT Diam: 2.60 3.0+(-)1.3 cm 2D Systolic Function EF 4C: 40.60 >55% EF 2C: 40.50 >55% EF BiP: 42.00 >55% Mitral Valve MV Pk E: 0.39 MV PK A: 0.30 MV Decel Time: 354.00 E/A: 1.30 E'Lateral: 6.42 E'Medial: 3.05 E/E' Med: 12.90 E/E' Lat: 6.10 PHT: 104.00 MVA PHT: 2.12 Decel Mason: 1.11 LVOT LVOT Pk Kristopher: 0.69 LVOT Mn Kristopher: 0.44 LVOT VTI: 0.15 LVOT Pk Grad: 2.00 LVOT Mn Grad: 1.00 LVOT Diam: 2.60 LVOT Area: 5.31 Diastolic Function MV Pk E: 0.39 MV Pk A: 0.30 E/A: 1.30 E'Medial: 3.05 E/E' Med: 12.90 E' Laterial: 6.42 E/E' Lat: 6.10 Tricuspid Valve RA Press: 3.00 Updated in Other Vendor System with Status of Final Eliseo Adame MD electronically signed on 12/08/2023 2:01:17 PM with status of Final
--- NOTE | 2023-12-08 07:50 | HM_ITS ---
* Total monitoring time 3 days. * Underlying rhythm is sinus with an average rate of 54/Min. About 66% of the time, rate < 60/Min. * Rare supraventricular ectopy. * Rare ventricular ectopy. One couplet, 2 triplets. * No significant pauses or high-grade AV blocks. * No patient markers or diary events. MTDD
== END ==
LOC: HO.CARD 07:45
PROVIDERS: PCP Internal Medicine; Visit Provider Internal Medicine Cardiovascular Disease
DX: I48.0 Paroxysmal atrial fibrillation (principal); I42.9 Cardiomyopathy, unspecified
CPT/HCPCS: 93242; 93308

== ENCOUNTER → 2023-12-08 07:50 | Outpatient (BNV) | payer BC, SELFPAY | PROVIDERS: PCP Internal Medicine; Visit Provider Internal Medicine Cardiovascular Disease | DX: I47.10 Supraventricular tachycardia, unspecified (principal) | CPT/HCPCS: 93244; 93308; 93321 ==

== ENCOUNTER 2023-12-22 08:39 | Outpatient (AMB) | payer BC, SELFPAY ==
[2023-12-22 09:01] VITALS: BP 132/68; PULSE 51; BMI 28.3
--- NOTE | 2023-12-22 09:01 | MHC.OFFVIS ---
Vital Signs 12/22/23 09:01 Height 5 ft 9 in Weight 191 lb 12.835 oz BMI 28.3 BP 132/68 Blood Pressure Location Lt brachial Position Sitting Pulse 51 Pulse Source Monitor Intake Visit Reasons: 8 wk f/up echo/ holter Allergies No Known Allergies Allergy (Mild, Verified 09/28/23 11:09) NOT APPLICABLE Medication List - Last Reconciled 12/22/23 by Eliseo Adame MD amiodarone 200 mg PO DAILY atorvastatin 80 mg PO DAILY latanoprost 0.005% 1 drp ophthalmic (eye) BEDTIME rivaroxaban (Xarelto) 20 mg PO DAILY Synthroid (levothyroxine) 112 mcg PO DAILY 90 days NS valsartan 40 mg PO BID HPI Comments Details: Evan comes for follow-up. He has been doing well from cardiac perspective. He said he feels very strong. Most recent echocardiogram shows nzak-as-lyuybybi LV systolic dysfunction although improved. He has no heart failure symptoms. Denies any orthopnea, PND, leg edema. Denies any prolonged palpitation irregular heartbeat. He checks once in a while his heart rate and has not noticed any irregular heartbeat. Takes all his medications. No bleeding issues or neurologic events. [facility] Medical History Persistent atrial fibrillation History of cardioversion History of thyroid storm Lipid disorder Paroxysmal atrial fibrillation Other specified hypothyroidism Surgical History Hx of colonoscopy History of wisdom tooth extraction Family History Father Cancer of prostate Colon polyps Mother No problems noted. Maternal Grandfather Leukemia Maternal Grandmother No problems noted. Paternal Grandmother No problems noted. Paternal Grandfather No problems noted. Brother No problems noted. Brother No problems noted. Brother No problems noted. Sister No problems noted. Social History Housing: House Alcohol intake: never Patient Tobacco Use Status: Never used Tobacco e-Cigarette/Vaping Use: Never Used Second Hand Smoke Exposure: No Current occupational status: employed Cognitive needs: No Hearing needs: No Vision needs: Yes Review of Systems Const Denies weakness ENT Denies dizziness Card Denies chest pain, Denies chest pain with activity, Denies syncope, Denies rapid heart rate, Denies pedal edema, Denies edema, Denies leg edema, Denies lightheadedness, Denies palpitations, Denies dyspnea, Denies dyspnea on exertion and Denies orthopnea Resp Denies cough, Denies dyspnea and Denies dyspnea on exertion GI Denies hematochezia and Denies change in stool character Musc Denies abnormal gait, Denies muscle cramps, Denies muscle weakness, Denies numbness, Denies radiating pain into limb and Denies tingling Neuro Denies abnormal gait, Denies dizziness, Denies syncope, Denies numbness, Denies tingling and Denies weakness Endo Denies palpitations Physical Exam Vital Signs: Last Vital Signs Pulse 51 12/22/23 09:01 BP 132/68 12/22/23 09:01 BMI result Body Mass Index 28.3 Const General: cooperative, comfortable, no acute distress, well developed, alert and awake Nutritional Appearance: average body habitus Orientation/consciousness: patient oriented x3 Limitations: no limitations Neck Neck: Yes trachea midline, Yes supple and Yes no JVD Resp Effort & Inspection: normal respiratory effort Auscultation: clear to auscultation bilaterally Cardio Jugular venous distension: no JVD Palpation: normal PMI Rate: bradycardic Rhythm: abnormal rhythm with ectopic beats Heart sounds: S1 normal heart sound present, S2 normal heart sound present, no click, no gallops, no murmurs and no rubs Peripheral pulses: Peripheral pulses 2+ throughout GI Auscultation: normal bowel sounds Skin General skin exam: no rashes or lesions noted Neuro General: patient oriented x3 and no focal motor deficits Extrem General: Yes no clubbing, cyanosis or edema Psych Appearance: grossly normal Office Procedures EKG Details: Sinus bradycardia with rightward axis with LVH with mild repolarization abnormality [id number], Complete Assessment & Plan Assessment & Plan (1) Paroxysmal atrial fibrillation: Code(s): I48.0 - Paroxysmal atrial fibrillation Category: Medical Plan: Paroxysmal atrial fibrillation once again doing extremely well with rhythm control approach with back to normal functional status. LV function is lagging and still has msca-rs-jukiwobr LV systolic dysfunction. Add with detailed discussion about management of atrial fibrillation. He is currently on amiodarone which is helping manage rhythm. We discussed about future management and discuss as ablation being a part of his management so that he can come off amiodarone therapy in the long run. He was a little hesitant about it which is understandable. I discussed the process of ablation to him. He wants to think about it. Once he agrees will refer him to electrophysiology for further evaluation for ablation. Also discussed in 3 months to repeat echocardiogram, see below if LV function has normalized I would switch him to an alternative agent such as Multaq or flecainide. (2) Cardiomyopathy: Code(s): I42.9 - Cardiomyopathy, unspecified Category: Medical Plan: Cardiomyopathy process which is repeated in him, 15 years ago he had severe cardiomyopathy and heart failure syndrome with persistent tachycardia mediated cardiomyopathy related to atrial fibrillation with normalized LV function over the last 15 years with no heart failure syndrome. May have a tendency for cardiomyopathy or may be related to atrial fibrillation. Will continue valsartan for neurohormonal modulation. Currently having no signs or symptoms of heart failure. These were discussed. Follow-up echocardiogram in 3 months time. (3) CAD (coronary artery disease): Code(s): I25.10 - Atherosclerotic heart disease of [place] coronary artery without angina pectoris Category: Medical Plan: Mild elevated calcium in the LAD territory on coronary calcium score. Continue aggressive risk factor modification. Continue statin therapy. Target goal LDL closer to 60 mg/dL. Currently not having any symptoms. Will follow up in the clinic in 3 months time, sooner p.r.n.. Thank you for allowing me to partake in his care Coding Level of Care Code Est Pt Level 4 (63172) Diagnoses Paroxysmal atrial fibrillation I48.0 Cardiomyopathy I42.9 CAD (coronary artery disease) I25.10 CPT Codes EKG - CPT: 47158-[id number], Complete ([id number])
== END 2023-12-22 09:32 | disposition home or self-care (01) ==
PROVIDERS: PCP Internal Medicine; Visit Provider Internal Medicine Cardiovascular Disease
DX: I48.0 Paroxysmal atrial fibrillation (principal); I42.9 Cardiomyopathy, unspecified; I25.10 Atherosclerotic heart disease of native coronary artery without angina pectoris
CPT/HCPCS: 93010; 99214

== ENCOUNTER → 2023-12-22 08:39 | Outpatient (BNVA) | payer BC, SELFPAY | PROVIDERS: PCP Internal Medicine; Visit Provider Internal Medicine Cardiovascular Disease | DX: I48.0 Paroxysmal atrial fibrillation (principal); I42.9 Cardiomyopathy, unspecified; I25.10 Atherosclerotic heart disease of native coronary artery without angina pectoris; Z79.899 Other long term (current) drug therapy | CPT/HCPCS: 93005 ==

== ENCOUNTER 2024-03-03 06:04 | Outpatient (REF) | payer BC, SELFPAY ==
[2024-03-03 10:10] LABS: MANUAL DIFF FLAG NO
[2024-03-03 10:12] LABS: Basophils Absolute Auto 0.1 X10*3/uL (0.0-0.2); Basophils Percent Auto 1.1 % (0-2); Eosinophils Absolute Auto 0.1 X10*3/uL (0.0-0.4); Eosinophils Percent Auto 2.4 % (0-4); Hematocrit 47.7 % (42.0-52.0); Hemoglobin 16.3 g/dl (14.0-18.0); Imm Gran Abs Auto 0.01 X10*3/uL (0.00-0.03); Imm Gran Pct Auto 0.2 % (0.0-0.4); Lymphocytes Absolute Auto 1.2 X10*3/uL (1.2-4.9); Lymphocytes Percent Auto 22.3 % (20-40); Mean Corpuscular HGB Conc 34.2 g/dl (31.0-36.0); Mean Corpuscular Hemoglobin 32.1 pg (27.0-33.0); Mean Corpuscular Volume 94.1 fL (80.0-98.0); Mean Platelet Volume 10.2 fL (9.4-12.4); Monocytes Absolute Auto 0.5 X10*3/uL (0.1-1.2); Monocytes Percent Auto 8.5 % (2-11); Neutrophils Absolute Auto 3.6 x10*3/uL (2.0-8.3); Neutrophils Percent Auto 65.5 % (45-73); Platelet Count 224 X10*3/uL (160-400); Red Blood Count 5.07 X10*6/uL (4.60-5.80); Red Cell Distribution Width 12.4 % (11.0-16.0); White Blood Count 5.5 X10*3/uL (4.8-10.8)
[2024-03-03 11:01] LABS: Alanine Aminotransferase 42 U/L (0-40); Albumin Level 4.3 g/dL (3.5-5.0); Alkaline Phosphatase 77 U/L (39-117); Anion Gap 10 (12-20); Aspartate Amino Transferase 34 U/L (5-37); Bilirubin Total 0.8 mg/dL (0.0-1.0); Blood Urea Nitrogen 16 mg/dL (9-16); Calcium 9.5 mg/dL (8.4-10.2); Carbon Dioxide 27 mmol/L (22-29); Chloride 106 mmol/L (96-108); Cholesterol 181 mg/dL (<200); Estimated Glomerular Filt Rate > 60; Glucose Fasting 96 mg/dL (60-99); HDL Cholesterol 67 mg/dL (>40); LDL Cholesterol Calculated 99 mg/dL (<100); Potassium 4.1 mmol/L (3.3-5.1); Sodium 139 mmol/L (135-145); Total Protein 7.4 g/dL (6.5-8.0); Triglycerides 75 mg/dL (<150)
[2024-03-03 11:05] LABS: TSH reflex Free T4 1.76 uIU/mL (0.32-4.0)
== END 2024-03-03 06:05 | disposition home or self-care (01) ==
LOC: HO.HMGCLDS 06:04
PROVIDERS: PCP Internal Medicine; Visit Provider Internal Medicine
DX: R73.01 Impaired fasting glucose (principal); E03.9 Hypothyroidism, unspecified; I48.0 Paroxysmal atrial fibrillation; E78.9 Disorder of lipoprotein metabolism, unspecified
CPT/HCPCS: 36415; 80053; 80061; 84443; 85025

== ENCOUNTER 2024-03-15 11:55 | Outpatient (AMB) | payer BC, SELFPAY ==
--- NOTE | 2024-03-15 12:04 | A.OFFPC_ITS ---
Vital Signs 03/15/24 12:06 Height 5 ft 9 in Weight 191 lb 6 oz BMI 28.3 BP 128/72 Blood Pressure Location Lt brachial Position Sitting Pulse 56 Pulse Source Pulse Oximeter Pulse Oximetry (%) 96 Oxygen Delivery Method Room Air Intake Visit Reasons: 6 month follow up Allergies No Known Allergies Allergy (Mild, Verified 03/15/24 12:07) NOT APPLICABLE Medication List - Last Reconciled 03/15/24 by Mateo Mcginnis MD amiodarone 200 mg PO DAILY atorvastatin 80 mg PO DAILY latanoprost 0.005% 1 drp ophthalmic (eye) BEDTIME rivaroxaban (Xarelto) 20 mg PO QPM Synthroid (levothyroxine) 112 mcg PO DAILY 90 days NS valsartan 40 mg PO BID Tobacco use date assessed: 03/15/24 Dental Screening Dental Screen Date: 03/15/24 Did you have a dental visit in the last 12 months?: Yes Did you have a dental problem in the last 6 months where you did not have access to dental care?: No Was dental information given to patient?: Patient has dentist HPI 6 month follow up HPI Details History - bulleted - The patient is a 58-year-old male pres enting with atrial fibrillation. managed with amiodarone and successful cardioversion. - Medications include Xarelto, adjusted following episodes of AFib. Regular monitoring of AFib status; considers cardiac ablation for long-term management. - Previous liver function tests indicate d elevated ALT enzymes (40s),. Regular evaluation necessary to monitor potential hepatic impact from lipidemic management. - Takes levothyroxine for longstanding h ypothyroidism; stable thyroid function tests allow for annual review. Cardiology: Dr. Adame [facility] Flu vaccine given today Review of Systems - Cardiovascular: Reports ongoing manage ment of atrial fibrillation. - Gastrointestinal: Denies excessive alc ohol consumption. General: No fever no chills neurological: No headaches no dizziness ear nose throat: No sore throat no hearing difficulty no ear pain musculoskeletal: Usual aches and pains nothing new cardiovascular: No syncope, no chest pain, no palpitations gastrointestinal: No nausea vomiting or diarrhea endocrine: No polyuria polydipsia no heat intolerance genitourinary: No dysuria , no blood in urine Physical Exam General: No acute distress HEENT: No acute findings Neck: Supple Respiratory system: Lungs are clear CVS: S1-S2 regular rate and rhythm Gastrointestinal: No pain Extremities: No new findings DESIGN ARCHITECT: Alert awake oriented x3 motor sensory intact Skin: Normal turgor Patient Instructions - Continue current cardiac and thyroid m edications as prescribed. - Maintain scheduled follow-up for mara chang thyroid assessment in September. - Monitor liver function with periodic l aboratory evaluations. - Proceed with plans for cardiac consult ation and potential ablation procedure. - Receive influenza vaccination at this visit for preventive care. Follow-up September for physical exam, labs are needed before visit order placed [facility] Medical History Persistent atrial fibrillation History of cardioversion History of thyroid storm Lipid disorder Paroxysmal atrial fibrillation Other specified hypothyroidism Surgical History Hx of colonoscopy History of wisdom tooth extraction Family History Father Cancer of prostate Colon polyps Mother No problems noted. Maternal Grandfather Leukemia Maternal Grandmother No problems noted. Paternal Grandmother No problems noted. Paternal Grandfather No problems noted. Brother No problems noted. Brother No problems noted. Brother No problems noted. Sister No problems noted. Social History Housing: House Alcohol intake: never Patient Tobacco Use Status: Never used Tobacco e-Cigarette/Vaping Use: Never Used Second Hand Smoke Exposure: No Current occupational status: employed Cognitive needs: No Hearing needs: No Vision needs: Yes Questionnaire PHQ-9 Over the last 2 weeks, how often have you been bothered by any of the following problems? 1. Little interest or pleasure in doing things: not at all 2. Feeling down, depressed, or hopeless: not at all 3. Trouble falling or staying asleep, or sleeping too much: not at all 4. Feeling tired or having little energy: not at all 5. Poor appetite or overeating: not at all 6. Feeling bad about yourself - or that you are a failure or have let yourself or your family down: not at all 7. Trouble concentrating on things, such as reading the newspaper or watching television: not at all 8. Moving or speaking so slowly that other people could have noticed. Or the opposite - being so fidgety or restless that you have been moving around a lot more than usual: not at all 9. Thoughts that you would be better off or of hurting yourself in some way: not at all Total score: 0 Depression Screening Interpretation: Negative Depression Screening Done: Yes 48506 - PHQ-9 Billing: Yes Source: Developed by Drs. Desmond Meraz, Hyun Morales, Kit Hyde and colleagues, with an educational beatrice from [employer]. Thrive Questionnaire Date Thrive assessed: 03/15/24 I am a: Patient What is your living situation today?: I have a steady place to live Within the past 12 months, did the food you bought not last and you didn't have the money to get more?: Never true Within the past 12 months, did you worry whether your food would run out before you got money to buy more?: Never true Do you have trouble paying for medicines?: No Do you have trouble getting transportation to medical appointments?: No Do you have trouble paying your heating and electricity bill?: No Do you have trouble taking care of your child, family member or friend?: No Do you have trouble with day-to-day activities such as bathing, preparing meals, shopping, managing finances, etc.?: No Are you currently unemployed and looking for a job?: No Are you interested in more education?: No Please select the resources that you would like help with: None Currently or been in a relationship where the following occur: No concerns reported THRIVE Score: 0 AUDIT C Alcohol Use Questionnaire (AUDIT-C) 1. How often do you have a drink containing alcohol?: Never 3. How often do you have six or more drinks on one occasion?: Never Total Score: 0 Score Reviewed/Action Taken: Yes DOMONIQUE-7 AMB Questionnaire DOMONIQUE-7 Date DOMONIQUE - 7 assessed: 03/15/24 Feeling nervous, anxious, or on edge: 0 = Not at all Not being able to stop or control worryin = Not at all Worrying too much about different things: 0 = Not at all Trouble relaxin = Not at all Being so restless that it is hard to sit still: 0 = Not at all Becoming easily annoyed or irritable: 0 = Not at all Feeling afraid as if something awful might happen: 0 = Not at all Total DOMONIQUE-7 score (0-4 normal; 5-9 mild; 10-14 moderate; 15-21 severe): 0 Source: Developed by Drs. Desmond Meraz, Hyun Morales, Kit Hyde and colleagues, with an educational beatrice from [employer]. DOMONIQUE-7 Assessment Billing DOMONIQUE-7 Assessment Tool: DOMONIQUE-7 Assessment 43855 Physical exam (Primary Care) Vital Signs: Last Vital Signs Pulse 56 03/15/24 12:06 BP 128/72 03/15/24 12:06 Pulse Ox 96 03/15/24 12:06 Oxygen Delivery Method Room Air 03/15/24 12:06 BMI result Body Mass Index 28.3 Tobacco/Smoking Status: Tobacco use Status Tobacco use date assessed 03/15/24 03/15/24 12:19 Patient Tobacco Use Status Never used Tobacco 03/15/24 12:05 e-Cigarette/Vaping Use Never Used 03/15/24 12:05 PHQ-9: PHQ-9 Score PHQ-9: Total score 0 03/15/24 12:21 Depression Screening Interpretation: Negative Thrive Assessment: Date of Thrive Assessment Date Thrive assessed 03/15/24 03/15/24 12:19 Currently or been in a relationship where the following occur: No concerns reported Office Procedures Flu Questionnaire Does the patient have a severe egg allergy?: No Does the patient have severe life threatening allergies?: No Does the patient have a fever or illness today?: No Has the patient ever had Guillain-[place] Syndrome?: No Has the patient ever had any past reaction to a flu shot?: No Immunizations Fluarix Triv [id number] (PF) 45 mcg (15 mcg x 3)/0.5 mL IM syringe Performing Provider: Mateo Mcginnis MD [place] [facility] Administered by: LATA Mohr on 03/15/24 12:25 Dose Route Admin Location Dispensed Lot Number Expiration Date [facility] Snow Technician 0.5 mL IM Left Deltoid 0.5 mL [id number] 09/25/24 [id number] [employer] VIS Given Date VIS Provided VIS Publication Date 03/15/24 Single Vaccine 20 Eligibility Eligibility Date Funding Source Not VFC Eligible 03/15/24 Private Coding Level of Care Code Est Pt Level 3 (41082) Diagnoses Other specified hypothyroidism E03.8 Lipid disorder E78.9 Paroxysmal atrial fibrillation I48.0 Coronary artery disease involving [place] coronary artery of [place] heart without angina pectoris I25.10 Coronary Disease-Associated Artery/Lesion type: [place] artery [place] vs. transplanted heart: [place] heart Associated angina: without angina Cardiomyopathy, unspecified type I42.9 Cardiomyopathy type: unspecified Additional Codes DOMONIQUE-7 Assessment Billing - DOMONIQUE-7 Assessment Tool: DOMONIQUE-7 Assessment 19324 ([id number]) PHQ-9 - 93983 - PHQ-9 Billing: Yes ([id number]) Assessment & Plan Assessment & Plan (1) Other specified hypothyroidism: Code(s): E03.8 - Other specified hypothyroidism Category: Medical (2) Lipid disorder: Code(s): E78.9 - Disorder of lipoprotein metabolism, unspecified Category: Medical (3) Paroxysmal atrial fibrillation: Code(s): I48.0 - Paroxysmal atrial fibrillation Category: Medical (4) CAD (coronary artery disease): Code(s): I25.10 - Atherosclerotic heart disease of [place] coronary artery without angina pectoris Category: Medical Qualifiers: Coronary Disease-Associated Artery/Lesion type: [place] artery [place] vs. transplanted heart: [place] heart Associated angina: without angina Qualified Code(s): I25.10 - Atherosclerotic heart disease of [place] coronary artery without angina pectoris (5) Cardiomyopathy: Code(s): I42.9 - Cardiomyopathy, unspecified Category: Medical Qualifiers: Cardiomyopathy type: unspecified Qualified Code(s): I42.9 - Cardiomyopathy, unspecified Plan History - bulleted - The patient is a 58-year-old male presenting with atrial fibrillation. managed with amiodarone and successful cardioversion. - Medications include Xarelto, adjusted following episodes of AFib. Regular monitoring of AFib status; considers cardiac ablation for long-term management. - Previous liver function tests indicated elevated ALT enzymes (40s),. Regular evaluation necessary to monitor potential hepatic impact from lipidemic management. - Takes levothyroxine for longstanding hypothyroidism; stable thyroid function tests allow for annual review. Cardiology: Dr. Adame [facility] Flu vaccine given today Review of Systems - Cardiovascular: Reports ongoing management of atrial fibrillation. - Gastrointestinal: Denies excessive alcohol consumption. General: No fever no chills neurological: No headaches no dizziness ear nose throat: No sore throat no hearing difficulty no ear pain musculoskeletal: Usual aches and pains nothing new cardiovascular: No syncope, no chest pain, no palpitations gastrointestinal: No nausea vomiting or diarrhea endocrine: No polyuria polydipsia no heat intolerance genitourinary: No dysuria , no blood in urine Physical Exam General: No acute distress HEENT: No acute findings Neck: Supple Respiratory system: Lungs are clear CVS: S1-S2 regular rate and rhythm Gastrointestinal: No pain Extremities: No new findings DESIGN ARCHITECT: Alert awake oriented x3 motor sensory intact Skin: Normal turgor Patient Instructions - Continue current cardiac and thyroid medications as prescribed. - Maintain scheduled follow-up for routine thyroid assessment in September. - Monitor liver function with periodic laboratory evaluations. - Proceed with plans for cardiac consultation and potential ablation procedure. - Receive influenza vaccination at this visit for preventive care. Follow-up September for physical exam, labs are needed before visit order placed Orders: Orders Complete Blood Count Auto Diff 6 Months E03.8 - Other specified hypothyroidism, E78.9 - Disorder of lipoprotein metabolism, unspecified, I25.10 - Atherosclerotic heart disease of [place] coronary artery without angina pectoris, I42.9 - Cardiomyopathy, unspecified, I48.0 - Paroxysmal atrial fibrillation TSH reflex Free T4 6 Months E03.8 - Other specified hypothyroidism, E78.9 - Disorder of lipoprotein metabolism, unspecified, I25.10 - Atherosclerotic heart disease of [place] coronary artery without angina pectoris, I42.9 - Cardiomyopathy, unspecified, I48.0 - Paroxysmal atrial fibrillation Comprehensive [place]. Panel Fast 6 Months E03.8 - Other specified hypothyroidism, E78.9 - Disorder of lipoprotein metabolism, unspecified, I25.10 - Atherosclerotic heart disease of [place] coronary artery without angina pectoris, I42.9 - Cardiomyopathy, unspecified, I48.0 - Paroxysmal atrial fibrillation Lipid Panel 6 Months E03.8 - Other specified hypothyroidism, E78.9 - Disorder of lipoprotein metabolism, unspecified, I25.10 - Atherosclerotic heart disease of [place] coronary artery without angina pectoris, I42.9 - Cardiomyopathy, unspecified, I48.0 - Paroxysmal atrial fibrillation
[2024-03-15 12:06] VITALS: BP 128/72; PULSE 56; O2SAT 96; BMI 28.3
== END 2024-03-15 13:06 | disposition home or self-care (01) ==
PROVIDERS: PCP Internal Medicine; Visit Provider Internal Medicine
DX: I48.0 Paroxysmal atrial fibrillation (principal); I42.9 Cardiomyopathy, unspecified; E03.8 Other specified hypothyroidism; E78.9 Disorder of lipoprotein metabolism, unspecified; I25.10 Atherosclerotic heart disease of native coronary artery without angina pectoris; Z23 Encounter for immunization

== ENCOUNTER → 2024-03-15 11:55 | Outpatient (BNVA) | payer BC, SELFPAY | PROVIDERS: PCP Internal Medicine; Visit Provider Internal Medicine | DX: E03.8 Other specified hypothyroidism (principal); E78.9 Disorder of lipoprotein metabolism, unspecified; I48.0 Paroxysmal atrial fibrillation; I25.10 Atherosclerotic heart disease of native coronary artery without angina pectoris; I42.9 Cardiomyopathy, unspecified; Z79.01 Long term (current) use of anticoagulants; Z23 Encounter for immunization | CPT/HCPCS: 90471; 90656; 96127 ==

== ENCOUNTER → 2024-04-04 07:43 | Outpatient (REF) | payer BC, SELFPAY ==
--- NOTE | 2024-04-04 07:46 | CA_ITS ---
Transthoracic Echocardiogram Patient (Last, First, Middle): Eavn Morris D Gender: Male Date of : 1965 Age: 58 Procedure Date: 04/04/2024 Procedure Type: Transthoracic Echocardiogram Location: OP Height: 175.26 cm Weight: 86.18 kg BSA: 2.02 m2 Heart Rate: 49 bpm BP: 128 / 72 mmHg Business Job Titles: SB Referring MD: Eliseo Adame MD Symptoms: I42.9 - Cardiomyopathy, unspecified Study Quality: Adequate/limited ordered ECG Rhythm: Bradycardia Conclusions: - The left ventricular systolic function is mildly decreased. The calculated ejection fraction is 48% by biplane method. Findings Left Ventricle Normal left ventricular cavity size. The left ventricular systolic function is mildly decreased. The calculated ejection fraction is 48% by biplane method. There is mild global hypokinesis. Prior Study Comparison Changes noted compared to prior study dated: 12/08/2023. LVEF slightly higher than previously reported. Measurements 2D Linear Measurements IVSd: 1.17 0.6-0.9/0.6-1.0 cm LVIDd: 5.56 3.9-5.3/4.2-5.9 cm LVIDd Index: 2.75 2.4-3.2/2.2-3.1 cm/m2 LVIDs: 3.87 2.0-3.6 cm LVPWd: 0.86 0.7-1.1 cm LV Mass: 275.62 67-162/88-224 g LV Mass Index: 136.45 43-95/49-115 g/m2 2D Systolic Function EF 4C: 47.50 >55% EF 2C: 46.80 >55% EF BiP: 47.70 >55% Updated in Other Vendor System with Status of Final Sigifredo Kang MD electronically signed on 04/06/2024 10:57:46 AM with status of Final
== END ==
LOC: HO.CARD 07:43
PROVIDERS: PCP Internal Medicine; Visit Provider Internal Medicine Cardiovascular Disease
DX: I42.9 Cardiomyopathy, unspecified (principal)
CPT/HCPCS: 93005; 93308

== ENCOUNTER 2024-04-04 10:34 | Outpatient (AMB) | payer BC, SELFPAY ==
--- NOTE | 2024-04-04 10:40 | A.OFFVIS_ITS ---
Vital Signs 04/04/24 10:41 Height 5 ft 9 in Weight 191 lb 12.835 oz BMI 28.3 BP 120/80 Blood Pressure Location Lt brachial Position Sitting Pulse 47 L Intake Visit Reasons: 3 mth f/up echo Intake Note: 3 month follow-up with ekg after echo has not seen EP yet would like to go see someone now [employer] Required: No Allergies No Known Allergies Allergy (Mild, Verified 03/15/24 12:07) NOT APPLICABLE Medication List - Last Reconciled 04/04/24 by Eliseo Adame MD amiodarone 200 mg PO DAILY atorvastatin 80 mg PO DAILY latanoprost 0.005% 1 drp ophthalmic (eye) BEDTIME rivaroxaban (Xarelto) 20 mg PO QPM Synthroid (levothyroxine) 112 mcg PO DAILY 90 days NS valsartan 40 mg PO BID HPI Comments Details: Evan comes for follow-up. He has been doing extremely well. Denies any symptoms of exertional chest pain or shortness of breath. He has no symptoms of heart failure. Denies any orthopnea, PND, leg edema. Denies any prolonged pal pitation irregular heartbeat. Has been tolerating his medications. Echocardiogram was done today, results pending. [facility] Medical History Persistent atrial fibrillation History of cardioversion History of thyroid storm Lipid disorder Paroxysmal atrial fibrillation Other specified hypothyroidism Surgical History Hx of colonoscopy History of wisdom tooth extraction Family History Father Cancer of prostate Colon polyps Mother No problems noted. Maternal Grandfather Leukemia Maternal Grandmother No problems noted. Paternal Grandmother No problems noted. Paternal Grandfather No problems noted. Brother No problems noted. Brother No problems noted. Brother No problems noted. Sister No problems noted. Social History Housing: House Alcohol intake: never Patient Tobacco Use Status: Never used Tobacco e-Cigarette/Vaping Use: Never Used Second Hand Smoke Exposure: No Current occupational status: employed Cognitive needs: No Hearing needs: No Vision needs: Yes Review of Systems Const Denies chills, Denies fatigue, Denies fever(s), Denies frequent falls, Denies weakness, Denies weight gain and Denies weight loss ENT Denies dizziness Card Denies chest pain, Denies leg edema, Denies lightheadedness, Denies palpitations, Denies dyspnea, Denies dyspnea on exertion, Denies orthopnea and Denies other (loss of consciousness) Resp Denies cough, Denies dyspnea and Denies dyspnea on exertion GI Denies hematochezia and Denies change in stool character Musc Denies abnormal gait, Denies muscle weakness, Denies numbness, Denies radiating pain into limb and Denies tingling Neuro Denies abnormal gait, Denies dizziness, Denies frequent falls, Denies numbness, Denies tingling and Denies weakness Endo Denies fatigue and Denies palpitations Physical Exam Vital Signs: Last Vital Signs Pulse 47 L 04/04/24 10:41 BP 120/80 04/04/24 10:41 BMI result Body Mass Index 28.3 Const General: cooperative, comfortable, no acute distress, well developed, alert and awake Nutritional Appearance: average body habitus Orientation/consciousness: patient oriented x3 Limitations: no limitations Neck Neck: Yes trachea midline, Yes supple and Yes no JVD Resp Effort & Inspection: normal respiratory effort Auscultation: clear to auscultation bilaterally Cardio Jugular venous distension: no JVD Palpation: normal PMI Rate: bradycardic Rhythm: abnormal rhythm with ectopic beats Heart sounds: S1 normal heart sound present, S2 normal heart sound present, no click, no gallops, no murmurs and no rubs Peripheral pulses: Peripheral pulses 2+ throughout GI Auscultation: normal bowel sounds Skin General skin exam: no rashes or lesions noted Neuro General: patient oriented x3 and no focal motor deficits Extrem General: Yes no clubbing, cyanosis or edema Psych Appearance: grossly normal Office Procedures EKG Details: EKG shows sinus bradycardia with rightward axis with nonspecific ST T wave changes with prolonged QT at 500 millisecond [id number], Complete Assessment & Plan Assessment & Plan (1) Paroxysmal atrial fibrillation: Code(s): I48.0 - Paroxysmal atrial fibrillation Category: Medical Plan: Highly symptomatic atrial fibrillation related to loss of AV synchrony causing cardiomyopathy process, x2. The 1st time was 15 years ago when he had thyrotoxicosis atrial fibrillation with severe cardiomyopathy and heart failure syndrome. This had resolved. Recently last year had recurrence of atrial fibrillation leading to severe LV systolic dysfunction again. Has done well with improving LV systolic function with maintenance of rhythm. Continue rhythm control approach although this requires amiodarone therapy in his case to maintain rhythm. Will refer him to EPS and he is agreeable to see electrophysiology service now for ablation. Will refer to at [facility] to pursue pulmonary vein isolation. Eventually will taper and discontinue amiodarone therapy and use alternative antiarrhythmic if need be after ablation. Continue full-dose oral anticoagulation with Xarelto lifelong. (2) Cardiomyopathy: Code(s): I42.9 - Cardiomyopathy, unspecified Category: Medical Qualifiers: Cardiomyopathy type: unspecified Qualified Code(s): I42.9 - Cardiomyopathy, unspecified Plan: Cardiomyopathy in the setting of atrial fibrillation. Most likely tachycardia mediated. At this point time LV ejection fraction had improved moderately. Repeat echocardiogram done today. Follow-up echocardiographic results and further direct therapy. If he still has LV systolic dysfunction will further uptitrate neurohormonal modulation with valsartan otherwise continue valsartan at current dose which is tolerating well. No signs or symptoms of heart f ailure. These were discussed. (3) CAD (coronary artery disease): Code(s): I25.10 - Atherosclerotic heart disease of redding coronary artery without angina pectoris Category: Medical Qualifiers: Coronary Disease-Associated Artery/Lesion type: redding artery [place] vs. transplanted heart: redding heart Associated angina: without angina Qualified Code(s): I25.10 - Atherosclerotic heart disease of redding coronary artery without angina pectoris Plan: Nonobstructive CAD with mild coronary calcium score. Continue risk factor modification. Currently on atorvastatin, target goal LDL less than 70 mg/dL. Continue Xarelto therapy. Will follow up in the clinic in 4 months time, sooner p.r.n.. Thank you for allowing me to partake in his care Coding Level of Care Code Est Pt Level 4 (50684) Complex EM visit Add On G2211 Diagnoses Paroxysmal atrial fibrillation I48.0 Cardiomyopathy, unspecified type I42.9 Cardiomyopathy type: unspecified Coronary artery disease involving redding coronary artery of redding heart without angina pectoris I25.10 Coronary Disease-Associated Artery/Lesion type: redding artery [place] vs. transplanted heart: redding heart Associated angina: without angina CPT Codes EKG - CPT: [id number], Complete ([id number])
[2024-04-04 10:41] VITALS: BP 120/80; PULSE 47; BMI 28.3
== END 2024-04-04 11:26 | disposition home or self-care (01) ==
PROVIDERS: PCP Internal Medicine; Visit Provider Internal Medicine Cardiovascular Disease
DX: I48.0 Paroxysmal atrial fibrillation (principal); I42.9 Cardiomyopathy, unspecified; I25.10 Atherosclerotic heart disease of native coronary artery without angina pectoris
CPT/HCPCS: 93010; 99214

== ENCOUNTER 2024-07-25 12:59 | Outpatient (AMB) | payer BC, SELFPAY ==
[2024-07-25 13:04] VITALS: BP 120/80; PULSE 51; BMI 28.6
--- NOTE | 2024-07-25 13:04 | MHC.OFFVIS ---
Vital Signs 07/25/24 13:04 Height 5 ft 9 in Weight 194 lb 0.108 oz BMI 28.6 BP 120/80 Blood Pressure Location Lt brachial Position Sitting Pulse 51 Intake Visit Reasons: 4m follow up Intake Note: 4 month follow-up with ekg feeling good ablation is booked for 09/25 [employer] Required: No Allergies No Known Allergies Allergy (Mild, Verified 03/15/24 12:07) NOT APPLICABLE Medication List - Last Reconciled 07/25/24 by Eliseo Adame MD amiodarone 200 mg PO DAILY atorvastatin 80 mg PO DAILY latanoprost 0.005% 1 drp ophthalmic (eye) BEDTIME rivaroxaban (Xarelto) 20 mg PO QPM Synthroid (levothyroxine) 112 mcg PO DAILY 90 days NS valsartan 40 mg PO BID HPI Comments Details: Evan comes for follow-up. He said when he walks up a flight of stairs he feels some effort and feels some fatigue. However he does not have any symptoms of shortness of breath, orthopnea, PND, leg edema, abdominal distension. No prolonged irregular heartbeat or palpitations. No exertional chest pain. No lightheadedness, syncope. His ablation is scheduled for in August. He denies any bleeding issues or neurologic events. [facility] Medical History Persistent atrial fibrillation History of cardioversion History of thyroid storm Lipid disorder Paroxysmal atrial fibrillation Other specified hypothyroidism Surgical History Hx of colonoscopy History of wisdom tooth extraction Family History Father Cancer of prostate Colon polyps Mother No problems noted. Maternal Grandfather Leukemia Maternal Grandmother No problems noted. Paternal Grandmother No problems noted. Paternal Grandfather No problems noted. Brother No problems noted. Brother No problems noted. Brother No problems noted. Sister No problems noted. Social History Housing: House Alcohol intake: never Patient Tobacco Use Status: Never used Tobacco e-Cigarette/Vaping Use: Never Used Second Hand Smoke Exposure: No Current occupational status: employed Cognitive needs: No Hearing needs: No Vision needs: Yes Review of Systems Const Denies chills, Denies fatigue, Denies fever(s), Denies frequent falls, Denies weakness, Denies weight gain and Denies weight loss ENT Denies dizziness Card Denies chest pain, Denies leg edema, Denies lightheadedness, Denies palpitations, Denies dyspnea, Denies dyspnea on exertion, Denies orthopnea and Denies other (loss of consciousness) Resp Denies cough, Denies dyspnea and Denies dyspnea on exertion GI Denies hematochezia and Denies change in stool character Musc Denies abnormal gait, Denies muscle weakness, Denies numbness, Denies radiating pain into limb and Denies tingling Neuro Denies abnormal gait, Denies dizziness, Denies frequent falls, Denies numbness, Denies tingling and Denies weakness Endo Denies fatigue and Denies palpitations Physical Exam Vital Signs: Last Vital Signs Pulse 51 07/25/24 13:04 BP 120/80 07/25/24 13:04 BMI result Body Mass Index 28.6 Const General: cooperative, comfortable, no acute distress, well developed, alert and awake Nutritional Appearance: average body habitus Orientation/consciousness: patient oriented x3 Limitations: no limitations Neck Neck: Yes trachea midline, Yes supple and Yes no JVD Resp Effort & Inspection: normal respiratory effort Auscultation: clear to auscultation bilaterally Cardio Jugular venous distension: no JVD Palpation: normal PMI Rate: bradycardic Rhythm: abnormal rhythm with ectopic beats Heart sounds: S1 normal heart sound present, S2 normal heart sound present, no click, no gallops, no murmurs and no rubs Peripheral pulses: Peripheral pulses 2+ throughout GI Auscultation: normal bowel sounds Skin General skin exam: no rashes or lesions noted Neuro General: patient oriented x3 and no focal motor deficits Extrem General: Yes no clubbing, cyanosis or edema Psych Appearance: grossly normal Office Procedures EKG Details: EKG shows normal sinus rhythm nonspecific ST T wave changes at 51 beats per minute [id number], Complete Assessment & Plan Assessment & Plan (1) Paroxysmal atrial fibrillation: Code(s): I48.0 - Paroxysmal atrial fibrillation Category: Medical Plan: Highly symptomatic paroxysmal atrial fibrillation mostly causing cardiomyopathy process. Has done well with improvement in LV ejection fraction with rhythm control. Only responded to amiodarone therapy and currently using amiodarone therapy. 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 Once ablation was complete I advised him to cut amiodarone 200 mg daily and then follow further for 3-6 months. If he was no recurrent events at that point time will switch him to an alternative antiarrhythmic drug therapy at that point in time. Continue aggressively rhythm control approach. Continue full oral anticoagulation, currently on Xarelto 20 mg daily. Avoidance of stimulants was discussed. He was having symptoms of chronotropic incompetence related to most likely amiodarone therapy and sinus bradycardia. Once ablation was completed will taper and eventually discontinue amiodarone therapy. (2) Cardiomyopathy: Code(s): I42.9 - Cardiomyopathy, unspecified Category: Medical Qualifiers: Cardiomyopathy type: unspecified Qualified Code(s): I42.9 - Cardiomyopathy, unspecified Plan: Cardiomyopathy with improved LV ejection fraction with rhythm control approach. Although persistent mild LV systolic dysfunction is noted. No signs or symptoms of heart failure noted. Continue valsartan therapy. Can not tolerate a beta-ray given his slow heart rate and symptoms of chronotropic incompetence. Will follow up in the clinic in 6 months time, sooner p.r.n.. Thank you for allowing me to partake in his care Coding Level of Care Code Est Pt Level 4 (63934) Complex EM visit Add On G2211 Diagnoses Paroxysmal atrial fibrillation I48.0 Cardiomyopathy, unspecified type I42.9 Cardiomyopathy type: unspecified CPT Codes EKG - CPT: [id number], Complete ([id number])
--- OUTSIDE RECORDS SUMMARY | 2024-07-25 14:54 | XMS_ITS | Clinical Summary ---
Author Organization [facility] Address [address] [place] [address] Care Team Providers Care Hardwood Floor Refinisher Name Role Phone System, Provider Not In Primary Care Provider Un available Allergies No known active allergies Medications No known medications Active Problems Problem Noted Date Diagnosed Date Encounter related to worker's compensation claim 07/29/2016 Fall 07/29/2016 Encounter for removal of sherri 07/29/2016 Resolved Problems Problem Noted Date Diagnosed Date Resolved Date Scalp laceration 07/29/2016 06/10/2023 Social History Tobacco Use Types Packs/Day Years Used Date Smoking Tobacco: Never Alcohol Use Standard Drinks/Week Comments No 0 (1 standard drink = 0.6 oz pur e alcohol) Sex and Gender Information Value Date Recorded Sex Assigned at Not on file Legal Sex Male 11:45 PM EDT Gender Identity Not on file Sexual Orientation Not on file Last Filed Vital Signs Vital Sign Reading Time Taken Comments Blood Pressure 120/80 07/29/2016 1:04 PM EDT Pulse 64 07/29/2016 1:04 PM EDT Temperature 37.3 ??C (99.1 ??F) 07/22/2016 11:49 PM E DT Respiratory Rate 18 07/22/2016 11:49 PM EDT Oxygen Saturation 98% 07/22/2016 11:49 PM EDT Inhaled Oxygen Concentration - - Weight - - Height - - Body Mass Index - - Plan of Treatment Health Maintenance Due Date Last Done Comments Hepatitis C Virus Screening 1964 HIV Screening 1977 DTaP/Tdap/Td Vaccines (1 - Tdap) 1983 Colonoscopy 2009 Pneumococcal Vaccines 50+ (1 of 1 - PCV) 2014 Zoster (Shingles) Vaccine (1 of 2) 2014 Influenza Vaccine 10/28/2023 COVID-19 Vaccine (1 - 2024-2 5 season) 2023 RSV Vaccine 60 years and old er and Patients (1 - 1-dose 75+ series) 2039 Hepatitis B Vaccines Aged Out No long er eligible based on patient's age to complete this topic Insurance [facility] [employer] Care Teams Hardwood Floor Refinisher Relationship Specialty Start Date End Date System, Provider Not In PCP - General 07/23/16
--- OUTSIDE RECORDS SUMMARY | 2024-07-25 14:54 | XMS_ITS | Clinical Summary ---
Author Organization [facility] Address [address] [place] [address] Care Team Providers Care Therapeutic Consultant Name Role Phone Mateo Mcginnis MD Primary Care Provider [phone] Medications Medication Sig Dispensed Refills Start Date End Date Status Synthroid 112 MCG tablet Take 112 mcg by mouth daily. 0 08/22/2020 Active simvastatin (ZOCOR) tablet 20 mg Take 20 mg by mouth. 0 Active Social History Tobacco Use Types Packs/Day Years Used Date Smoking Tobacco: Never Assessed Sex and Gender Information Value Date Recorded Sex Assigned at Male 09/17/2020 12:10 PM EDT Gender Identity Not on file Sexual Orientation Not on file Job Start Date Occupation Industry Not on file Not on file Not on file Last Filed Vital Signs Vital Sign Reading Time Taken Comments Blood Pressure - - Pulse - - Temperature - - Respiratory Rate - - Oxygen Saturation - - Inhaled Oxygen Concentration - - Weight 81.6 kg (180 lb) 09/17/2020 11:56 AM EDT Height 175.3 cm (5' 9 ) 09/17/2020 11:56 AM EDT Body Mass Index 26.58 09/17/2020 11:56 AM EDT Plan of Treatment Health Maintenance Due Date Last Done Comments Hepatitis C Screening 1965 COVID-19 Vaccine (#1) 1964 Depression Screening 1976 BMI Counseling 1982 Preventative Health Evaluation 1982 DTap / Tdap / Td (1 - Tdap) 1983 Colon Cancer Screening (Colonoscopy) 2009 Shingrix-Zoster Vaccine (1 of 2) 2014 Influenza Vaccine (#1) 2023 RSV Adult > 60+ Yrs or Pregn ant (1 - 1-dose 75+ series) 2039 Hepatitis B Vaccines Aged Out No long er eligible based on patient's age to complete this topic Pneumococcal Vaccine Aged Out No long er eligible based on patient's age to complete this topic RSV Ped < 20 months Aged Out No longe r eligible based on patient's age to complete this topic Care Teams Therapeutic Consultant Relationship Specialty Start Date End Date Mateo Mcginnis MD [address] [place] [id number] PCP - General Internal Medicine 09/17/20
== END 2024-07-25 13:59 | disposition home or self-care (01) ==
LOC: HO.HCS 12:59
PROVIDERS: PCP Internal Medicine; Visit Provider Internal Medicine Cardiovascular Disease
DX: I48.0 Paroxysmal atrial fibrillation (principal); I42.9 Cardiomyopathy, unspecified
CPT/HCPCS: 93010; 99214

== ENCOUNTER → 2024-07-25 12:59 | Outpatient (BNVA) | payer BC, SELFPAY | PROVIDERS: PCP Internal Medicine; Visit Provider Internal Medicine Cardiovascular Disease | DX: I48.0 Paroxysmal atrial fibrillation (principal); I42.9 Cardiomyopathy, unspecified; Z79.01 Long term (current) use of anticoagulants | CPT/HCPCS: 93005 ==

== ENCOUNTER 2024-10-02 06:03 | Outpatient (REF) | payer BC, SELFPAY ==
[2024-10-02 10:49] LABS: MANUAL DIFF FLAG NO
[2024-10-02 11:00] LABS: Hematocrit 47.1 % (42.0-52.0); Hemoglobin 16.0 g/dl (14.0-18.0); Imm Gran Abs Auto 0.02 X10*3/uL (0.00-0.03); Imm Gran Pct Auto 0.4 % (0.0-0.4); Lymphocytes Absolute Auto 1.1 X10*3/uL (1.2-4.9); Mean Corpuscular HGB Conc 34.0 g/dl (31.0-36.0); Mean Corpuscular Hemoglobin 32.1 pg (27.0-33.0); Mean Corpuscular Volume 94.6 fL (80.0-98.0); NRBC Abs Auto 0.000 X10*3/uL (0.0-0.012); NRBC Pct Auto 0.0 /100WBC (0.0-0.2); Platelet Count 199 X10*3/uL (160-400); Red Blood Count 4.98 X10*6/uL (4.60-5.80); White Blood Count 5.4 X10*3/uL (4.8-10.8)
[2024-10-02 12:34] LABS: Anion Gap 10 (12-20)
[2024-10-02 12:38] LABS: Alanine Aminotransferase 26 U/L (0-40); Albumin Level 4.4 g/dL (3.5-5.0); Alkaline Phosphatase 86 U/L (39-117); Aspartate Amino Transferase 30 U/L (5-37); Blood Urea Nitrogen 21 mg/dL (9-16); Calcium 9.1 mg/dL (8.4-10.2); Carbon Dioxide 27 mmol/L (22-29); Chloride 105 mmol/L (96-108); Cholesterol 166 mg/dL (<200); Estimated Glomerular Filt Rate > 60; HDL Cholesterol 61 mg/dL (>40); Potassium 4.0 mmol/L (3.3-5.1); Sodium 138 mmol/L (135-145); Total Protein 7.1 g/dL (6.5-8.0); Triglycerides 99 mg/dL (<150)
== END 2024-10-02 06:04 | disposition home or self-care (01) ==
LOC: HO.HMGCLDS 06:03
PROVIDERS: PCP Internal Medicine; Visit Provider Internal Medicine
DX: I25.10 Atherosclerotic heart disease of native coronary artery without angina pectoris (principal); I48.0 Paroxysmal atrial fibrillation; I42.9 Cardiomyopathy, unspecified; E03.8 Other specified hypothyroidism; E78.9 Disorder of lipoprotein metabolism, unspecified
CPT/HCPCS: 36415; 80053; 80061; 84443; 85025

== ENCOUNTER 2024-10-06 13:15 | Outpatient (AMB) | payer BC, SELFPAY ==
--- OUTSIDE RECORDS SUMMARY | 2024-10-06 13:18 | XMS_ITS | Clinical Summary ---
Author Organization [facility] Address [address] [place] [address] Care Team Providers Care Curriculum Coordinator Name Role Phone System, Provider Not In [...] 64 07/29/2016 1:04 PM EDT Temperature 37.3 C (99.1 F) 07/22/2016 11:49 PM EDT Respiratory Rate 18 07/22/2016 11:49 PM EDT [...] Zoster (Shingles) Vaccine (1 of 2) 2014 COVID-19 Vaccine ( - 2024-2 5 season) 2023 Influenza Vaccine 10/27/2024 RSV Vaccine 60 years and old er and Patients (1 - 1-dose 75+ series) 2039 Hepatitis B Vaccines Aged Out No long er eligible based on patient's age to complete this topic Insurance [facility] [facility] Care Teams Curriculum Coordinator Relationship Specialty Start Date End Date System, Provider Not In PCP - General 07/23/16
--- OUTSIDE RECORDS SUMMARY | 2024-10-06 13:18 | XMS_ITS | Clinical Summary ---
Author Organization [facility] Address [address] [place] [address] Care Team Providers Care Bushler Name Role Phone Mateo Mcginnis MD Primary Care Provider [phone] Medications Medication Sig Dispensed Refills Start Date [...] (1 of 2) 2014 Influenza Vaccine (#1) 2024 RSV Adult > 60+ Yrs or Pregn [...] age to complete this topic Care Teams Bushler Relationship Specialty Start Date End Date Mateo Mcginnis MD [address] [place] [phone] PCP - General Internal Medicine 09/17/20
[2024-10-06 13:22] VITALS: BP 150/98; PULSE 65; RESP 16; O2SAT 99; BMI 28.2
--- NOTE | 2024-10-06 13:22 | A.OFFPC_ITS ---
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 Required: No Accompanied by: Self / Same As Patient Allergies No Known Allergies Allergy (Mild, Verified 10/06/24 13:22) NOT APPLICABLE Medication List - Last Reconciled 10/06/24 by Mateo Mcginnis MD atorvastatin 80 mg PO DAILY latanoprost 0.005% 1 drp ophthalmic (eye) BEDTIME rivaroxaban (Xarelto) 20 mg PO QPM Synthroid (levothyroxine) 112 mcg PO DAILY 90 days NS valsartan 40 mg PO BID Tobacco use date assessed: 10/06/24 Dental Screening Dental Screen Date: 10/06/24 Did you have a dental visit in the last 12 months?: Yes Did you have a dental problem in the last 6 months where you did not have access to dental care?: No Was dental information given to patient?: Patient has dentist HPI Annual HPI Details Physical exam appointment - The patient is a 59-year-old male pres enting with a history of atrial fibrillation. - Underwent cardiac ablation one month a go after an initial reluctance and a three-month consideration period. - Prior to the ablation, cardioversion w as attempted but was unsuccessful. Subsequent medication successfully converted rhythm. - post-ablation, the patient cannot defi nitively sense the presence or absence of atrial fibrillation but reports a regular pulse. - Essential Hypertension noted, with a b lood pressure reading of 150/98, measured twice during the visit. - Currently on medication for hypertensi on valsartan 40 mg b.i.d. through Cardiology and recommended to continue monitoring and logging blood pressure at home. - Hyperlipidemia: currently taking Atorv astatin as prescribed by cardiology. - Hypothyroidism: taking Synthroid, thyr oid function tests are reported as normal. - Benign Prostatic Hyperplasia: Occasion al urinary frequency observed, though historical assessments showed normal prostate-specific antigen levels. - Underwent colon cancer screening in [facility] 2022 with no significant findings indicated, advised follow-up in 10 years. Medical History: - Atrial Fibrillation - Essential Hypertension - Hyperlipidemia - Hypothyroidism Surgical History: - Cardiac ablation for atrial fibrillati on (one month ago) Social History: - Engages in regular physical activity, including walking and biking. - Reports reduced caffeine intake and im proved dietary habits. - No history of substance use discussed. Health Maintenance - Conducted colon cancer screening in [facility] 2022 with unremarkable findings, follow-up scheduled in 10 years. - Metabolic profile showed normal electr olyte and kidney function. - Liver enzymes within normal limits. - Fasting blood glucose: 93 mg/dL. - LDL not specified, but implied to be m anaged. - Thyroid Stimulating Hormone (TSH): 1.9 0 mIU/L, indicating normal thyroid function. [facility] - Cardiology (Dr. Rosas) - Drag Out Man (involved in cardi ac ablation) Medications - Atorvastatin 80 mg: for hyperlipidemia - Synthroid 112 mcg: for hypothyroidism - Valsartan 40 mg: for hypertension - Amiodarone: previously taken, disconti nued post-ablation Patient Instructions - Maintain a log of blood pressure readi ngs at home and contact Dr. Rosas if readings remain elevated. - Continue current medications as prescr ibed. - Follow up as planned in one year for p hysical examination. Review of Systems - General: No fever no chills - Neurological: No headaches no dizzin ess - Ear nose throat: No sore throat no hearing difficulty no ear pain - Cardiovascular: No syncope, no chest pain, no palpitations - Gastrointestinal: No nausea vomiting or diarrhea - Endocrine: No polyuria polydipsia no heat intolerance - Genitourinary: No dysuria - Skin: No new complaints Physical Exam General: Cooperative, healthy appearing, comfortable, no acute distress Orientation: Patient oriented x3 Head: Normal to inspection Ears: Within normal limit visually Nose: Normal external nose present Face and sinus: Normal facial exam Eyes: Appearance normal, extraocular movement intact pupils reactive Neck: Normal visual inspection and supple Respiratory: Normal respiratory effort and able to speak in complete sentences. Clear to auscultation, no stridor Cardiovascular: S1 and S2 RRR, pulse feels regular GI: Normal to inspection. Soft to palpation and nontender Skin: Turgor normal, no acute findings Neuro: Patient oriented x3, motor sensory intact, balance intact, tandem pass Extremities: Normal to inspection, range of motion intact [facility] Medical History Persistent atrial fibrillation History of cardioversion History of thyroid storm Lipid disorder Paroxysmal atrial fibrillation Other specified hypothyroidism Surgical History Hx of prior ablation treatment Hx of colonoscopy History of wisdom tooth extraction Family History Father Cancer of prostate Colon polyps Mother No problems noted. Maternal Grandfather Leukemia Maternal Grandmother No problems noted. Paternal Grandmother No problems noted. Paternal Grandfather No problems noted. Brother No problems noted. Brother No problems noted. Brother No problems noted. Sister No problems noted. Social History Housing: House Alcohol intake: never Patient Tobacco Use Status: Never used Tobacco e-Cigarette/Vaping Use: Never Used Second Hand Smoke Exposure: No Current occupational status: employed Cognitive needs: No Hearing needs: No Vision needs: Yes Questionnaire PHQ-9 Over the last 2 weeks, how often have you been bothered by any of the following problems? 1. Little interest or pleasure in doing things: not at all 2. Feeling down, depressed, or hopeless: not at all 3. Trouble falling or staying asleep, or sleeping too much: not at all 4. Feeling tired or having little energy: not at all 5. Poor appetite or overeating: not at all 6. Feeling bad about yourself - or that you are a failure or have let yourself or your family down: not at all 7. Trouble concentrating on things, such as reading the newspaper or watching television: not at all 8. Moving or speaking so slowly that other people could have noticed. Or the opposite - being so fidgety or restless that you have been moving around a lot more than usual: not at all 9. Thoughts that you would be better off or of hurting yourself in some way: not at all Total score: 0 Depression Screening Interpretation: Negative Depression Screening Done: Yes 91659 - PHQ-9 Billing: Yes Source: Developed by Drs. Desmond Meraz, Hyun Morales, Kit Hyde and colleagues, with an educational beatrice from [employer]. Thrive Questionnaire Date Thrive assessed: 07/11/25 I am a: Patient What is your living situation today?: I have a steady place to live Within the past 12 months, did the food you bought not last and you didn't have the money to get more?: Never true Within the past 12 months, did you worry whether your food would run out before you got money to buy more?: Never true Do you have trouble paying for medicines?: No Do you have trouble getting transportation to medical appointments?: No Do you have trouble paying your heating and electricity bill?: No Do you have trouble taking care of your child, family member or friend?: No Do you have trouble with day-to-day activities such as bathing, preparing meals, shopping, managing finances, etc.?: No Are you currently unemployed and looking for a job?: No Are you interested in more education?: No Please select the resources that you would like help with: None Currently or been in a relationship where the following occur: No concerns reported THRIVE Score: 0 AUDIT C Alcohol Use Questionnaire (AUDIT-C) 1. How often do you have a drink containing alcohol?: Never 3. How often do you have six or more drinks on one occasion?: Never Total Score: 0 Score Reviewed/Action Taken: Yes DOMONIQUE-7 AMB Questionnaire DOMONIQUE-7 Date DOMONIQUE - 7 assessed: 10/06/24 Feeling nervous, anxious, or on edge: 0 = Not at all Not being able to stop or control worryin = Not at all Worrying too much about different things: 0 = Not at all Trouble relaxin = Not at all Being so restless that it is hard to sit still: 0 = Not at all Becoming easily annoyed or irritable: 0 = Not at all Feeling afraid as if something awful might happen: 0 = Not at all Total DOMONIQUE-7 score (0-4 normal; 5-9 mild; 10-14 moderate; 15-21 severe): 0 Source: Developed by Drs. Desmond Meraz, Hyun Morales, Kit Hyde and colleagues, with an educational beatrice from [employer]. DOMONIQUE-7 Assessment Billing DOMONIQUE-7 Assessment Tool: DOMONIQUE-7 Assessment 79374 Physical exam (Primary Care) Vital Signs: Last Vital Signs Pulse 65 10/06/24 13:22 Resp 16 10/06/24 13:22 BP 150/98 H 10/06/24 13:22 Pulse Ox 99 10/06/24 13:22 Oxygen Delivery Method Room Air 10/06/24 13:22 BMI result Body Mass Index 28.2 Tobacco/Smoking Status: Tobacco use Status Tobacco use date assessed 10/06/24 10/06/24 13:29 Patient Tobacco Use Status Never used Tobacco 10/06/24 13:29 e-Cigarette/Vaping Use Never Used 10/06/24 13:29 PHQ-9: PHQ-9 Score PHQ-9: Total score 0 10/06/24 13:36 Depression Screening Interpretation: Negative Thrive Assessment: Date of Thrive Assessment Date Thrive assessed 10/06/24 10/06/24 13:29 Currently or been in a relationship where the following occur: No concerns reported Coding Level of Care Code Est Pt Level 3 (42458) Est Pt Prev Care 40-64y(77899) Diagnoses Encounter for general adult medical examination with abnormal findings Z00.01 Elevated blood pressure reading R03.0 Other specified hypothyroidism E03.8 Impaired fasting blood sugar R73.01 Lipid disorder E78.9 Paroxysmal atrial fibrillation I48.0 History of cardiac ablation for atrial fibrillation Z98.890; I48.91 Additional Codes DOMONIQUE-7 Assessment Billing - DOMONIQUE-7 Assessment Tool: DOMONIQUE-7 Assessment 47701 ([id number]) PHQ-9 - 29206 - PHQ-9 Billing: Yes ([id number]) Assessment & Plan Assessment & Plan (1) Encounter for general adult medical examination with abnormal findings: Code(s): Z00.01 - Encounter for general adult medical examination with abnormal findings Category: Medical (2) Elevated blood pressure reading: Code(s): R03.0 - Elevated blood-pressure reading, without diagnosis of hypertension Category: Medical (3) Other specified hypothyroidism: Code(s): E03.8 - Other specified hypothyroidism Category: Medical (4) Impaired fasting blood sugar: Code(s): R73.01 - Impaired fasting glucose Category: Medical (5) Lipid disorder: Code(s): E78.9 - Disorder of lipoprotein metabolism, unspecified Category: Medical (6) Paroxysmal atrial fibrillation: Code(s): I48.0 - Paroxysmal atrial fibrillation Category: Medical (7) History of cardiac ablation for atrial fibrillation: Code(s): Z98.890 - Other specified postprocedural states; I48.91 - Unspecified atrial fibrillation Category: Surgical Plan Physical exam appointment - The patient is a 59-year-old male presenting with a history of atrial fibrillation. - Underwent cardiac ablation one month ago after an initial reluctance and a three-month consideration period. - Prior to the ablation, cardioversion was attempted but was unsuccessful. Subsequent medication successfully converted rhythm. - post-ablation, the patient cannot definitively sense the presence or absence of atrial fibrillation but reports a regular pulse. - Essential Hypertension noted, with a blood pressure reading of 150/98, measured twice during the visit. - Currently on medication for hypertension valsartan 40 mg b.i.d. through Cardiology and recommended to continue monitoring and logging blood pressure at home. - Hyperlipidemia: currently taking Atorvastatin as prescribed by cardiology. - Hypothyroidism: taking Synthroid, thyroid function tests are reported as norm al. - Benign Prostatic Hyperplasia: Occasional urinary frequency observed, though historical assessments showed normal prostate-specific antigen levels. - Underwent colon cancer screening in May 2022 with no significant findings indicated, advised follow-up in 10 years. Medical History: - Atrial Fibrillation - Essential Hypertension - Hyperlipidemia - Hypothyroidism Surgical History: - Cardiac ablation for atrial fibrillation (one month ago) Social History: - Engages in regular physical activity, including walking and biking. - Reports reduced caffeine intake and improved dietary habits. - No history of substance use discussed. Health Maintenance - Conducted colon cancer screening in May 2022 with unremarkable findings, follow-up scheduled in 10 years. - Metabolic profile showed normal electrolyte and kidney function. - Liver enzymes within normal limits. - Fasting blood glucose: 93 mg/dL. - LDL not specified, but implied to be managed. - Thyroid Stimulating Hormone (TSH): 1.90 mIU/L, indicating normal thyroid function. [facility] - Cardiology (Dr. Rosas) - Drag Out Man (involved in cardiac ablation) Medications - Atorvastatin 80 mg: for hyperlipidemia - Synthroid 112 mcg: for hypothyroidism - Valsartan 40 mg: for hypertension - Amiodarone: previously taken, discontinued post-ablation Patient Instructions - Maintain a log of blood pressure readings at home and contact Dr. Rosas if readings remain elevated. - Continue current medications as prescribed. - Follow up as planned in one year for physical examination. Medications: Refilled Synthroid (levothyroxine) 112 mcg PO DAILY 90 tabs 3RF 90 days NS
== END 2024-10-06 14:00 | disposition home or self-care (01) ==
LOC: HO.HMCC 13:16
PROVIDERS: PCP Internal Medicine; Visit Provider Internal Medicine
DX: Z00.01 Encounter for general adult medical examination with abnormal findings (principal); I48.91 Unspecified atrial fibrillation; I48.0 Paroxysmal atrial fibrillation; R03.0 Elevated blood-pressure reading, without diagnosis of hypertension; E03.8 Other specified hypothyroidism; R73.01 Impaired fasting glucose; E78.9 Disorder of lipoprotein metabolism, unspecified; Z98.890 Other specified postprocedural states

== ENCOUNTER → 2024-10-06 13:15 | Outpatient (BNVA) | payer BC, SELFPAY | PROVIDERS: PCP Internal Medicine; Visit Provider Internal Medicine | DX: Z00.01 Encounter for general adult medical examination with abnormal findings (principal); I10 Essential (primary) hypertension; E03.8 Other specified hypothyroidism; R73.01 Impaired fasting glucose; E78.9 Disorder of lipoprotein metabolism, unspecified; I48.0 Paroxysmal atrial fibrillation; N40.1 Benign prostatic hyperplasia with lower urinary tract symptoms; R35.0 Frequency of micturition; Z79.899 Other long term (current) drug therapy; Z13.31 Encounter for screening for depression; Z13.30 Encounter for screening examination for mental health and behavioral disorders, unspecified | CPT/HCPCS: 96127 ==

== ENCOUNTER → 2025-01-10 10:34 | Outpatient (REF) | payer BC, SELFPAY ==
--- NOTE | 2025-01-10 10:41 | CA_ITS ---
Transthoracic Echocardiogram Patient (Last, First, Middle): Evan Morris D Gender: M Date of : 1965 Age: 59 Procedure Date: 01/10/2025 Procedure Type: Transthoracic Echocardiogram Location: OP Height: 175.26 cm Weight: 86.18 kg BSA: 2.02 m2 Heart Rate: bpm BP: 118 / 60 mmHg Brake Repair Supervisor: ORIN/RC Referring MD: Eliseo Adame MD Electric Appliance Installer: Eliseo Adame MD Symptoms: I42.9 - Cardiomyopathy, unspecified Study Quality: Adequate ECG Rhythm: Sinus Conclusions: - 1. Low normal LV ejection fraction 50-55% 2. Mild mitral regurgitation 3. Normal RV systolic pressure 4. No gross pericardial effusion Findings Left Ventricle Normal left ventricular cavity size. There is normal left ventricular wall thickness. The left ventricular systolic function is low normal. The visually estimated ejection fraction is between 50-55%. Spectral Doppler is indicative of a normal filling pattern. Right Ventricle Normal right ventricular cavity size and systolic function. Atria The left atrium is mildly dilated. There is no evidence of interatrial shunt. The right atrium is likely dilated. Aortic Valve Normal aortic valve structure and function. There is no aortic valve stenosis. There is no aortic valve regurgitation. Mitral Valve Normal mitral valve structure and function. There is mild mitral valve regurgitation. There is no mitral valve stenosis. Pulmonic Valve The pulmonic valve is likely normal. There is trace pulmonic valve regurgitation. Tricuspid Valve Normal tricuspid valve structure. There is trace tricuspid valve regurgitation. The right ventricular systolic pressure is normal. The right ventricular systolic pressure is 16 mmHg. Normal right atrial pressure. There is no evidence of pulmonary hypertension. Great Vessels All visible segments of the aorta are normal in size. The pulmonary artery was not well visualized. Venous The inferior vena cava is normal in size and collapses greater than 50% with inspiration. Pericardium/Pleural There is no evidence of pericardial effusion. Prior Study Comparison No significant change compared to prior study dated: 04/04/2024. Measurements 2D Linear Measurements IVSd: 1.08 0.6-0.9/0.6-1.0 cm LVIDd: 5.60 3.9-5.3/4.2-5.9 cm LVIDd Index: 2.77 2.4-3.2/2.2-3.1 cm/m2 LVIDs: 3.74 2.0-3.6 cm LVPWd: 1.02 0.7-1.1 cm Ao Root: 3.60 2.1-3.5 cm LA Diam: 4.80 2.7-3.8/3.0-4.0 cm LAIDs Index: 2.38 1.5-2.3 cm/m2 LV Mass: 292.15 67-162/88-224 g LV Mass Index: 144.63 43-95/49-115 g/m2 LVOT Diam: 2.70 3.0+(-)1.3 cm 2D Systolic Function EF 4C: 48.10 >55% EF 2C: 51.50 >55% EF BiP: 50.10 >55% Mitral Valve MV Pk E: 0.50 MV PK A: 0.34 MV Decel Time: 274.00 E/A: 1.50 E'Lateral: 6.32 E'Medial: 3.57 E/E' Med: 14.00 E/E' Lat: 7.90 PHT: 80.00 MVA PHT: 2.75 Decel [place]: 1.83 LVOT LVOT Diam: 2.70 LVOT Area: 5.73 Diastolic Function MV Pk E: 0.50 MV Pk A: 0.34 E/A: 1.50 E'Medial: 3.57 E/E' Med: 14.00 E' Laterial: 6.32 E/E' Lat: 7.90 Right Ventricle TAPSE (mm): 21.00 TVS' Kristopher: 8.00 Tricuspid Valve TR Pk Kristopher: 1.83 TR Pk Grad: 13.00 RA Press: 3.00 RVSP: 16.00 Great Vessels Aorta Ao Root-2D: 3.60 2.0-3.7 cm Ao Asc: 3.50 2.1-3.4 cm Pulmonary Valve PV Pk Kristopher: 0.61 Peak PV Grad: 2.00 Updated in Other Vendor System with Status of Final Eliseo Adame MD electronically signed on 01/10/2025 2:00:43 PM with status of Final
--- OUTSIDE RECORDS SUMMARY | 2025-01-10 12:34 | XMS_ITS | Clinical Summary ---
Author Organization [facility] Address [address] [place] [address] Care Team Providers Care Substation Operator Helper Name Role Phone Mateo Mcginnis MD Primary Care Provider [phone] Medications Medication Sig Dispensed Refills Start Date [...] age to complete this topic Care Teams Substation Operator Helper Relationship Specialty Start Date End Date Mateo Mcginnis MD [address] [place] [id number] PCP - General Internal Medicine 09/17/20
== END ==
LOC: HO.CARD 10:34
PROVIDERS: PCP Internal Medicine; Visit Provider Internal Medicine Cardiovascular Disease
DX: I42.9 Cardiomyopathy, unspecified (principal)
CPT/HCPCS: 93306

== ENCOUNTER → 2025-01-10 10:41 | Outpatient (BNV) | payer BC, SELFPAY | PROVIDERS: PCP Internal Medicine; Visit Provider Internal Medicine Cardiovascular Disease | DX: I34.0 Nonrheumatic mitral (valve) insufficiency (principal) | CPT/HCPCS: 93306 ==

== ENCOUNTER 2025-01-25 13:06 | Outpatient (AMB) | payer BC, SELFPAY ==
--- NOTE | 2025-01-25 13:12 | A.OFFVIS_ITS ---
Vital Signs 01/25/25 13:13 Height 5 ft 9 in Weight 200 lb 9.93 oz BMI 29.6 BP 110/68 Blood Pressure Location Lt brachial Position Sitting Pulse 51 Intake Visit Reasons: 6 mth f/up Intake Note: 6 month follow-up post ablation with ekg feeling good Roll Forming Machine Operator Required: No Allergies No Known Allergies Allergy (Mild, Verified 10/06/24 13:22) NOT APPLICABLE Medication List - Last Reconciled 01/25/25 by Eliseo Adame MD atorvastatin 80 mg PO DAILY latanoprost 0.005% 1 drp ophthalmic (eye) BEDTIME Synthroid (levothyroxine) 112 mcg PO DAILY 90 days NS valsartan 40 mg PO BID HPI Comments Details: Evan comes for follow-up after ablation. He was taken off amiodarone the day of the ablation. Since then Ashwin's also taken off Xarelto therapy. He has done well. He is monitoring his heart rate on daily basis in his not notice any significant atrial fibrillation. Most recent echocardiogram shows low normal LVEF of 50-55% which has improved compared to before with mild left atrial en largement. He is tolerating his valsartan therapy well. Blood pressures been well controlled. He said he is doing well and overall has been exercising more. No heart failure symptoms. [facility] Medical History Persistent atrial fibrillation History of cardioversion History of thyroid storm Lipid disorder Paroxysmal atrial fibrillation Other specified hypothyroidism Surgical History Hx of prior ablation treatment Hx of colonoscopy History of wisdom tooth extraction Family History Father Cancer of prostate Colon polyps Mother No problems noted. Maternal Grandfather Leukemia Maternal Grandmother No problems noted. Paternal Grandmother No problems noted. Paternal Grandfather No problems noted. Brother No problems noted. Brother No problems noted. Brother No problems noted. Sister No problems noted. Social History Housing: House Alcohol intake: never Patient Tobacco Use Status: Never used Tobacco e-Cigarette/Vaping Use: Never Used Second Hand Smoke Exposure: No Current occupational status: employed Cognitive needs: No Hearing needs: No Vision needs: Yes Review of Systems Const Denies chills, Denies fatigue, Denies fever(s), Denies frequent falls, Denies weakness, Denies weight gain and Denies weight loss ENT Denies dizziness Card Denies chest pain, Denies leg edema, Denies lightheadedness, Denies palpitations, Denies dyspnea, Denies dyspnea on exertion, Denies orthopnea and Denies other (loss of consciousness) Resp Denies cough, Denies dyspnea and Denies dyspnea on exertion GI Denies hematochezia and Denies change in stool character Musc Denies abnormal gait, Denies muscle weakness, Denies numbness, Denies radiating pain into limb and Denies tingling Neuro Denies abnormal gait, Denies dizziness, Denies frequent falls, Denies numbness, Denies tingling and Denies weakness Endo Denies fatigue and Denies palpitations Physical Exam Vital Signs: Last Vital Signs Pulse 51 01/25/25 13:13 BP 110/68 01/25/25 13:13 BMI result Body Mass Index 29.6 Const General: cooperative, comfortable, no acute distress, well developed, alert and awake Nutritional Appearance: average body habitus Orientation/consciousness: patient oriented x3 Limitations: no limitations Neck Neck: Yes trachea midline, Yes supple and Yes no JVD Resp Effort & Inspection: normal respiratory effort Auscultation: clear to auscultation bilaterally Cardio Jugular venous distension: no JVD Palpation: normal PMI Rate: bradycardic Rhythm: abnormal rhythm with ectopic beats Heart sounds: S1 normal heart sound present, S2 normal heart sound present, no click, no gallops, no murmurs and no rubs Peripheral pulses: Peripheral pulses 2+ throughout GI Auscultation: normal bowel sounds Skin General skin exam: no rashes or lesions noted Neuro General: patient oriented x3 and no focal motor deficits Extrem General: Yes no clubbing, cyanosis or edema Psych Appearance: grossly normal Office Procedures EKG Details: EKG shows normal sinus rhythm with voltage criteria for LVH with nonspecific ST- T changes with poor R-wave progression most likely lead placement [id number], Complete Assessment & Plan Assessment & Plan (1) Cardiomyopathy: Code(s): I42.9 - Cardiomyopathy, unspecified Category: Medical Qualifiers: Cardiomyopathy type: unspecified Qualified Code(s): I42.9 - Cardio myopathy, unspecified Plan: Cardiomyopathy with improved LV ejection fraction 50-55% without any heart failure symptoms. Clinically euvolemic and well compensated. Currently on valsartan therapy for neurohormonal modulation with well controlled blood pressure and no symptoms. Continue the same. Follow-up echocardiogram in a year's time. Avoidance of cardiotoxic agent was discussed. He has done very well with rhythm control approach will continue pursue rhythm control approach. (2) Paroxysmal atrial fibrillation: Code(s): I48.0 - Paroxysmal atrial fibrillation Category: Medical Plan: Paroxysmal atrial fibrillation recurrent with cardiomyopathy process. On amiodarone required amiodarone to suppress it. Status post ablation and off amiodarone therapy at this point time. Doing very well and maintaining rhythm. Advised daily pulse check and consider investing in his smart phone based EKG device. Continue to avoid stimulants. Advised to call me as soon as possible if he noticed any irregular pulse. Will follow up in the clinic otherwise in 1 year's time, sooner PRN. Thank you for allowing me to partake in his care Orders: Orders CA echo transthoracic complete 1 Year I42.9 - Cardiomyopathy, unspecified Coding Level of Care Code Est Pt Level 4 (22190) Complex EM visit Add On G2211 Diagnoses Cardiomyopathy, unspecified type I42.9 Cardiomyopathy type: unspecified Paroxysmal atrial fibrillation I48.0 CPT Codes EKG - CPT: 99937-[id number], Complete ([id number])
[2025-01-25 13:13] VITALS: BP 110/68; PULSE 51; BMI 29.6
--- OUTSIDE RECORDS SUMMARY | 2025-01-25 15:59 | XMS_ITS | Clinical Summary ---
Author Organization [facility] Address [address] [place] [address] Care Team Providers Care Flat Surfacer Name Role Phone Mateo Mcginnis MD Primary Care Provider [phone] Medications Medication Sig Dispensed Refills Start Date [...] age to complete this topic Care Teams Flat Surfacer Relationship Specialty Start Date End Date Mateo Mcginnis MD [address] [place] [id number] PCP - General Internal Medicine 09/17/20
--- OUTSIDE RECORDS SUMMARY | 2025-01-25 15:59 | XMS_ITS | Clinical Summary ---
Author Organization [facility] Address [address] [place] [address] Care Team Providers Care Pharmacy Picking Tech Name Role Phone System, Provider Not In [...] Vaccine (1 of 2) 2014 Influenza Vaccine 10/27/2024 COVID-19 Vaccine (2023-2 5 season) 2024 RSV Vaccine 50 years and old er and Patients (1 - 1-dose 75+ series) 2039 Hepatitis B Vaccines Aged Out No long er eligible based on patient's age to complete this topic Insurance [facility] [place] [employer] Care Teams Pharmacy Picking Tech Relationship Specialty Start Date End Date System, Provider Not In PCP - General 07/23/16
== END 2025-01-25 13:29 | disposition home or self-care (01) ==
LOC: HO.HCS 13:07
PROVIDERS: PCP Internal Medicine; Visit Provider Internal Medicine Cardiovascular Disease
DX: I42.9 Cardiomyopathy, unspecified (principal); I48.0 Paroxysmal atrial fibrillation
CPT/HCPCS: 93010; 99214

== ENCOUNTER → 2025-01-25 13:06 | Outpatient (BNVA) | payer BC, SELFPAY | PROVIDERS: PCP Internal Medicine; Visit Provider Internal Medicine Cardiovascular Disease | DX: I48.0 Paroxysmal atrial fibrillation (principal); I42.9 Cardiomyopathy, unspecified; Z98.890 Other specified postprocedural states | CPT/HCPCS: 93005 ==